=== PATIENT | male | born 1935 | race Caucasian/White ===

== ENCOUNTER 2017-07-04 12:30 | Day surgery (SDC) | payer MEDICARE, OTHER ==
[~2017-07-04 12:30] MED LIST: ACET325 PO; ACIDOPHILUS1 EAC1 PO; ALBU3IS; ALBU3IS INH; ALBU90OI INH; ALLO300 PO; ALPR.25; ALPR.25 PO; AMLO5 PO; ASPI81CH PO; ASPI81EC PO; BENZ100A PO; BISA10S PR; BUDE6HFA; BUDE6HFA INH; CALC1.25T PO; CARV6.25 PO; CEFD300 PO; CETI5 PO; CHOL10002 PO; CILO50 PO; CLOP75 PO; COLC.6 PO; COLCRYS0.6 MG PO; COUGHTAB200 MG PO; CYAN1000 PO; CYAN1000I IM; Calcium + Vita1 EACH PO; Carvedilol12.5 MG PO; DEXA1; DOCU100 PO; FISH1000 PO; FLUN25SP; FLUT.05NI; FURO20 PO; Furosemide20 MG PO; GABA400 PO; HYDACE10B; HYDACE10B PO; HYDMOR2 PO; IBUP800 PO; LAVAP17G PO; LEVFLO500 PO; LOPE2C PO; LOSA25 PO; LOSA50 PO; MECL25 PO; METCAR500 PO; METF500 PO; METO25 PO; METO25ER PO; MUCUS RELIEF200 MG PO; MULVITMIND PO; OMEP20ER; POTCHL10ER PO; PRED10 PO; PRED20 PO; PSEU120ER PO; PSYL5.85P PO; RANI150 PO; Rapaflo8 MG PO; SIMV40 PO; SODCHL.65S; Simvastatin10 MG PO; TIOT18 IH; TIOT18 INH; TRAM50 PO; VITAMIN D-32000 UNIT PO; Ventolin Soln3 ML INH; Ventolin/Prove6.7 GM INH; Zocor10 MG PO
[2017-09-30] MEDS ORDERED: Pulmicort0.5 MG/2 M INH (14:38)
[2017-09-30] MEDS ORDERED: CYAN1000I IM (14:39)
[2017-09-30] MEDS ORDERED: DOCU100 PO (14:39)
[2017-09-30] MEDS ORDERED: Ipratr-Albuterol3 ML INH (14:40)
[2017-09-30] MEDS ORDERED: GUAI600T33 PO (14:41)
[2017-09-30] MEDS ORDERED: ONDA4ODT MM (14:42)
[2017-09-30] MEDS ORDERED: MIRALAX17 GM PO (14:42)
[2017-09-30] MEDS ORDERED: Ranitidine HCl150 M1 PO (14:43)
[2017-09-30] MEDS ORDERED: Rapaflo8 MG PO (14:43)
== END 2017-07-04 14:34 | disposition home or self-care (01) ==
LOC: WOUND 12:30
DX: Z48.00 Encounter for change or removal of nonsurgical wound dressing (principal); E11.59 Type 2 diabetes mellitus with other circulatory complications; Z89.612 Acquired absence of left leg above knee
CPT/HCPCS: G0463

== ENCOUNTER 2017-08-19 14:24 | Inpatient (IN) | payer OTHER, MEDICARE ==
[~2017-08-19] VITALS: Ht 175.3 cm; Wt 78.0 kg
[2017-08-19] MEDS ORDERED: MELO7.5 PO (14:44)
[2017-08-19 15:09] LABS: BASOPHILS ABSOLUTE AUTO 0.03 K/mm3 (0.00-0.23); BASOPHILS PERCENT AUTO 1 % (0-2); EOSINOPHILS PERCENT AUTO 2 % (0-6); Hematocrit 43.1 % (37.0-53.0); Hemoglobin 14.2 g/dL (13.5-17.5); IMMATURE GRAN ABSOLUTE AUTO 0.03 K/mm3 (0.00-0.10); IMMATURE GRAN PERCENT AUTO 1 % (0-1); LYMPHOCYTES ABSOLUTE AUTO 1.34 K/mm3 (0.84-5.20); LYMPHOCYTES PERCENT AUTO 23 % (21-46); MONOCYTES ABSOLUTE AUTO 0.45 K/mm3 (0.16-1.47); MONOCYTES PERCENT AUTO 8 % (4-13); Mean Corpuscular HGB 32.3 pg (26.0-34.0); Mean Corpuscular HGB Conc 32.9 g/dL (31.5-36.5); Mean Corpuscular Volume 98 fL (80-100); NEUTROPHILS ABSOLUTE AUTO 3.89 K/mm3 (1.96-9.15); NEUTROPHILS PERCENT AUTO 67 % (41-73); RDW Coefficient Variation 13.1 % (11.7-14.2); RDW Standard Deviation 46.3 fL (35.1-46.3); White Blood Cell Count 5.84 K/mm3 (4.00-11.30)
[2017-08-19 15:11] LABS: Mean Platelet Volume 9.7 fL (9.1-12.4); Platelet Count 114 K/mm3 (150-400)
[2017-08-19 15:21] LABS: International Normalized Ratio 1.07; Prothrombin Time Results 11.1 Sec (9.7-11.5)
[2017-08-19 16:08] LABS: Albumin, Blood 3.7 g/dL (3.4-5.0); Albumin/Globulin Ratio 1.1 (0.8-1.8); Bilirubin, Total 1.9 mg/dL (0.1-1.0); Bun/Creatinine Ratio 13.3 (12.0-20.0); Creatinine, Blood 1.28 mg/dL (0.60-1.20); Globulin, Blood 3.4 g/dL (2.2-4.0); Potassium, Blood 3.9 mmol/L (3.5-5.5); Total Protein, Blood 7.1 g/dL (6.4-8.2)
[2017-08-19 16:28] LABS: Source, Urine Catheter
[2017-08-19 16:32] LABS: Bilirubin, Urine Neg (Neg); Blood, Urine Neg (Neg); Glucose Qualitative, Urine Neg (Neg); Ketones, Urine Neg (Neg); Leukocyte Esterase, Urine Neg (Neg); Nitrite, Urine Neg (Neg); Protein, Urine Neg (Neg); Specific Gravity, Urine 1.015 (1.003-1.022); Urobilinogen, Urine NORM (Normal)
[2017-08-19 16:45] LABS: Appearance, Urine Clear (Clear); Color, Urine Yellow (P-Yellow)
[2017-08-20 05:42] LABS: BASOPHILS ABSOLUTE AUTO 0.03 K/mm3 (0.00-0.23); BASOPHILS PERCENT AUTO 1 % (0-2); EOSINOPHILS ABSOLUTE AUTO 0.21 K/mm3 (0.00-0.68); EOSINOPHILS PERCENT AUTO 3 % (0-6); Hematocrit 40.8 % (37.0-53.0); Hemoglobin 13.2 g/dL (13.5-17.5); IMMATURE GRAN ABSOLUTE AUTO 0.02 K/mm3 (0.00-0.10); IMMATURE GRAN PERCENT AUTO 0 % (0-1); LYMPHOCYTES ABSOLUTE AUTO 1.19 K/mm3 (0.84-5.20); LYMPHOCYTES PERCENT AUTO 19 % (21-46); MONOCYTES ABSOLUTE AUTO 0.55 K/mm3 (0.16-1.47); MONOCYTES PERCENT AUTO 9 % (4-13); Mean Corpuscular HGB Conc 32.4 g/dL (31.5-36.5); Mean Corpuscular Volume 99 fL (80-100); Mean Platelet Volume 9.8 fL (9.1-12.4); NEUTROPHILS ABSOLUTE AUTO 4.25 K/mm3 (1.96-9.15); NEUTROPHILS PERCENT AUTO 68 % (41-73); Platelet Count 97 K/mm3 (150-400); RDW Coefficient Variation 13.1 % (11.7-14.2); RDW Standard Deviation 47.5 fL (35.1-46.3); Red Blood Cell Count 4.12 M/mm3 (4.30-5.90); White Blood Cell Count 6.25 K/mm3 (4.00-11.30)
[2017-08-20 06:01] LABS: Alanine Aminotransfer (ALT/SGP 23 U/L (12-78); Albumin, Blood 3.3 g/dL (3.4-5.0); Albumin/Globulin Ratio 1.1 (0.8-1.8); Alk Phos 85 U/L (50-136); Anion Gap 5 mmol/L (6-16); Aspartate Aminotrans (AST/SGOT 22 U/L (12-37); Bilirubin, Total 2.7 mg/dL (0.1-1.0); Blood Urea Nitrogen 17 mg/dL (8-24); Bun/Creatinine Ratio 14.2 (12.0-20.0); CO2, Blood 30 mmol/L (21-32); Calcium, Blood 8.4 mg/dL (8.5-10.1); Chloride, Blood 106 mmol/L (98-108); Globulin, Blood 3.1 g/dL (2.2-4.0); Glomerular Filtration Rate >60 (60-); Glucose, Blood 135 mg/dL (70-99); Potassium, Blood 4.3 mmol/L (3.5-5.5); Sodium, Blood 141 mmol/L (136-145); Total Protein, Blood 6.4 g/dL (6.4-8.2)
[2017-08-21 04:18] LABS: BASOPHILS ABSOLUTE AUTO 0.02 K/mm3 (0.00-0.23); BASOPHILS PERCENT AUTO 0 % (0-2); EOSINOPHILS ABSOLUTE AUTO 0.08 K/mm3 (0.00-0.68); EOSINOPHILS PERCENT AUTO 1 % (0-6); Hematocrit 37.6 % (37.0-53.0); IMMATURE GRAN ABSOLUTE AUTO 0.03 K/mm3 (0.00-0.10); IMMATURE GRAN PERCENT AUTO 0 % (0-1); LYMPHOCYTES ABSOLUTE AUTO 0.84 K/mm3 (0.84-5.20); LYMPHOCYTES PERCENT AUTO 12 % (21-46); MONOCYTES ABSOLUTE AUTO 0.48 K/mm3 (0.16-1.47); MONOCYTES PERCENT AUTO 7 % (4-13); Mean Corpuscular HGB 32.2 pg (26.0-34.0); Mean Corpuscular HGB Conc 31.9 g/dL (31.5-36.5); Mean Corpuscular Volume 101 fL (80-100); Mean Platelet Volume 10.3 fL (9.1-12.4); NEUTROPHILS ABSOLUTE AUTO 5.54 K/mm3 (1.96-9.15); NEUTROPHILS PERCENT AUTO 79 % (41-73); Platelet Count 78 K/mm3 (150-400); RDW Standard Deviation 48.3 fL (35.1-46.3); Red Blood Cell Count 3.73 M/mm3 (4.30-5.90); White Blood Cell Count 6.99 K/mm3 (4.00-11.30)
[2017-08-22 03:35] LABS: BASOPHILS ABSOLUTE AUTO 0.01 K/mm3 (0.00-0.23); BASOPHILS PERCENT AUTO 0 % (0-2); EOSINOPHILS ABSOLUTE AUTO 0.18 K/mm3 (0.00-0.68); EOSINOPHILS PERCENT AUTO 3 % (0-6); Hematocrit 32.7 % (37.0-53.0); Hemoglobin 10.5 g/dL (13.5-17.5); IMMATURE GRAN ABSOLUTE AUTO 0.03 K/mm3 (0.00-0.10); IMMATURE GRAN PERCENT AUTO 1 % (0-1); LYMPHOCYTES ABSOLUTE AUTO 0.72 K/mm3 (0.84-5.20); LYMPHOCYTES PERCENT AUTO 12 % (21-46); MONOCYTES ABSOLUTE AUTO 0.54 K/mm3 (0.16-1.47); MONOCYTES PERCENT AUTO 9 % (4-13); Mean Corpuscular HGB Conc 32.1 g/dL (31.5-36.5); Mean Corpuscular Volume 100 fL (80-100); Mean Platelet Volume 9.9 fL (9.1-12.4); NEUTROPHILS PERCENT AUTO 75 % (41-73); Platelet Count 78 K/mm3 (150-400); RDW Standard Deviation 46.8 fL (35.1-46.3); Red Blood Cell Count 3.28 M/mm3 (4.30-5.90); White Blood Cell Count 5.88 K/mm3 (4.00-11.30)
[2017-08-24 04:42] LABS: Hematocrit 31.2 % (37.0-53.0); Hemoglobin 10.2 g/dL (13.5-17.5); Mean Corpuscular HGB 32.1 pg (26.0-34.0); Mean Corpuscular HGB Conc 32.7 g/dL (31.5-36.5); Mean Corpuscular Volume 98 fL (80-100); Mean Platelet Volume 10.4 fL (9.1-12.4); Platelet Count 99 K/mm3 (150-400); RDW Coefficient Variation 12.8 % (11.7-14.2); RDW Standard Deviation 46.1 fL (35.1-46.3); Red Blood Cell Count 3.18 M/mm3 (4.30-5.90); White Blood Cell Count 4.86 K/mm3 (4.00-11.30)
[2017-08-24 04:59] LABS: Anion Gap 7 mmol/L (6-16); Blood Urea Nitrogen 14 mg/dL (8-24); Bun/Creatinine Ratio 15.1 (12.0-20.0); CO2, Blood 31 mmol/L (21-32); Chloride, Blood 102 mmol/L (98-108); Creatinine, Blood 0.93 mg/dL (0.60-1.20); Glomerular Filtration Rate >60 (60-); Glucose, Blood 93 mg/dL (70-99); Potassium, Blood 3.5 mmol/L (3.5-5.5); Sodium, Blood 140 mmol/L (136-145)
[2017-09-30] MEDS ORDERED: Pulmicort0.5 MG/2 M INH (14:38)
[2017-09-30] MEDS ORDERED: CYAN1000I IM (14:39)
[2017-09-30] MEDS ORDERED: DOCU100 PO (14:39)
[2017-09-30] MEDS ORDERED: Ipratr-Albuterol3 ML INH (14:40)
[2017-09-30] MEDS ORDERED: GUAI600T33 PO (14:41)
[2017-09-30] MEDS ORDERED: ONDA4ODT MM (14:42)
[2017-09-30] MEDS ORDERED: MIRALAX17 GM PO (14:42)
[2017-09-30] MEDS ORDERED: Ranitidine HCl150 M1 PO (14:43)
[2017-09-30] MEDS ORDERED: Rapaflo8 MG PO (14:43)
== END 2017-08-24 14:50 | DRG 482 ==
LOC: ER 14:24 → SURS 16:08
PROVIDERS: Family Medicine; Internal Medicine; Orthopaedic Surgery; Physician Assistant
PROC: 0QH736Z Insertion of Intramedullary Internal Fixation Device into Left Upper Femur, Percutaneous Approach (ICD-10-PCS; principal; 2017-08-20 14:00)
DX: S72.142A Displaced intertrochanteric fracture of left femur, initial encounter for closed fracture (principal); D69.6 Thrombocytopenia, unspecified; E11.51 Type 2 diabetes mellitus with diabetic peripheral angiopathy without gangrene; W01.0XXA Fall on same level from slipping, tripping and stumbling without subsequent striking against object, initial encounter; M25.522 Pain in left elbow; I25.10 Atherosclerotic heart disease of native coronary artery without angina pectoris; M10.9 Gout, unspecified; K21.9 Gastro-esophageal reflux disease without esophagitis; G47.33 Obstructive sleep apnea (adult) (pediatric); M19.90 Unspecified osteoarthritis, unspecified site; G89.29 Other chronic pain; M54.5 Low back pain; J44.9 Chronic obstructive pulmonary disease, unspecified; N40.0 Benign prostatic hyperplasia without lower urinary tract symptoms; E78.5 Hyperlipidemia, unspecified; I10 Essential (primary) hypertension; Y92.538 Other ambulatory health services establishments as the place of occurrence of the external cause; Z79.1 Long term (current) use of non-steroidal anti-inflammatories (NSAID); Z79.82 Long term (current) use of aspirin; Z79.891 Long term (current) use of opiate analgesic; Z95.820 Peripheral vascular angioplasty status with implants and grafts; Z87.891 Personal history of nicotine dependence; Z86.718 Personal history of other venous thrombosis and embolism; Z88.5 Allergy status to narcotic agent; Z88.8 Allergy status to other drugs, medicaments and biological substances; Z95.1 Presence of aortocoronary bypass graft; Z95.5 Presence of coronary angioplasty implant and graft; Z95.0 Presence of cardiac pacemaker; Z89.612 Acquired absence of left leg above knee; Z79.51 Long term (current) use of inhaled steroids; Z79.899 Other long term (current) drug therapy; Z79.02 Long term (current) use of antithrombotics/antiplatelets
CPT/HCPCS: 36415; 51702; 71045; 73070; 80048; 80053; 81003; 82947; 85025; 85027; 85610; 86850; 86900; 86901; 93005; 93010; 94640; 94760; 94762; 96374; 96375; 97110; 97162; 97165; 97530; 97535; 99285; C1713; C1769; C9113; G8978; G8979; G8987; G8988; J0360; J0690; J1170; J2405; J2765; J3010; J7120

== ENCOUNTER 2017-10-01 07:36 | Day surgery (SDC) | payer MEDICARE, OTHER ==
[~2017-10-01] VITALS: Ht 175.3 cm; Wt 77.2 kg
[~2017-10-01 07:36] MED LIST changes: +GUAI600T33 PO; +Ipratr-Albuterol3 ML INH; +MELO7.5 PO; +MIRALAX17 GM PO; +ONDA4ODT MM; +Pulmicort0.5 MG/2 M INH; +Ranitidine HCl150 M1 PO
[2017-10-01] MEDS ORDERED: GABA400 PO (09:14)
== END 2017-10-01 17:00 | disposition home or self-care (01) ==
LOC: MHTC 07:36
PROC: B41DYZZ Fluoroscopy of Aorta and Bilateral Lower Extremity Arteries using Other Contrast (ICD-10-PCS; principal; 2017-10-01)
DX: E11.51 Type 2 diabetes mellitus with diabetic peripheral angiopathy without gangrene (principal); I70.202 Unspecified atherosclerosis of native arteries of extremities, left leg; I70.92 Chronic total occlusion of artery of the extremities; G47.30 Sleep apnea, unspecified; Z87.891 Personal history of nicotine dependence; I25.10 Atherosclerotic heart disease of native coronary artery without angina pectoris; Z95.0 Presence of cardiac pacemaker; E78.5 Hyperlipidemia, unspecified; I10 Essential (primary) hypertension; J44.9 Chronic obstructive pulmonary disease, unspecified; Z89.612 Acquired absence of left leg above knee; Z95.1 Presence of aortocoronary bypass graft; Z87.81 Personal history of (healed) traumatic fracture; Z79.4 Long term (current) use of insulin
CPT/HCPCS: 36140; 75625; 75710; 76937; 85347; 99152; 99153; C1769; C1887; C1894; J1644; J2250; J2720; J3010; J7030; J7040; Q9967

== ENCOUNTER 2017-10-30 13:15 | Day surgery (SDC) | payer MEDICARE, OTHER ==
[~2017-10-30] VITALS: Ht 175.3 cm; Wt 74.8 kg
== END 2017-10-30 14:25 | disposition home or self-care (01) ==
LOC: ORSCSDS 13:15
PROVIDERS: Anesthesiology
PROC: 3E0R33Z Introduction of Anti-inflammatory into Spinal Canal, Percutaneous Approach (ICD-10-PCS; principal; 2017-10-30 14:30)
DX: M54.16 Radiculopathy, lumbar region (principal); M48.061 Spinal stenosis, lumbar region without neurogenic claudication; I73.9 Peripheral vascular disease, unspecified; E78.00 Pure hypercholesterolemia, unspecified; J45.909 Unspecified asthma, uncomplicated; Z87.891 Personal history of nicotine dependence; I25.10 Atherosclerotic heart disease of native coronary artery without angina pectoris; Z95.0 Presence of cardiac pacemaker; Z79.01 Long term (current) use of anticoagulants; I10 Essential (primary) hypertension; Z79.82 Long term (current) use of aspirin; Z79.899 Other long term (current) drug therapy
CPT/HCPCS: J1040

== ENCOUNTER → 2017-11-18 | Outpatient (CLI) | payer MEDICARE, OTHER | END | disposition home or self-care (01) | LOC: LAB EV 12:40 → LAB SHORT 12:40 | DX: E11.51 Type 2 diabetes mellitus with diabetic peripheral angiopathy without gangrene (principal); R53.83 Other fatigue | CPT/HCPCS: 82043 ==

== ENCOUNTER 2018-03-27 10:48 | Day surgery (SDC) | payer MEDICARE, OTHER ==
[~2018-03-27] VITALS: Ht 175.3 cm; Wt 74.8 kg
== END 2018-03-27 12:50 | disposition home or self-care (01) ==
LOC: ORSCSDS 10:48
PROVIDERS: Anesthesiology
PROC: 3E0R33Z Introduction of Anti-inflammatory into Spinal Canal, Percutaneous Approach (ICD-10-PCS; principal; 2018-03-27 12:30)
DX: M54.16 Radiculopathy, lumbar region (principal); M48.061 Spinal stenosis, lumbar region without neurogenic claudication; I25.10 Atherosclerotic heart disease of native coronary artery without angina pectoris; I73.9 Peripheral vascular disease, unspecified; I10 Essential (primary) hypertension; E78.00 Pure hypercholesterolemia, unspecified; J45.909 Unspecified asthma, uncomplicated; Z95.0 Presence of cardiac pacemaker; K21.9 Gastro-esophageal reflux disease without esophagitis; G47.33 Obstructive sleep apnea (adult) (pediatric); E11.9 Type 2 diabetes mellitus without complications; Z87.891 Personal history of nicotine dependence; Z79.82 Long term (current) use of aspirin; Z79.84 Long term (current) use of oral hypoglycemic drugs; Z79.899 Other long term (current) drug therapy
CPT/HCPCS: J1040; J2001

== ENCOUNTER 2018-09-04 11:48 | Observation (INO) | payer OTHER, MEDICARE ==
[~2018-09-04] VITALS: Ht 175.3 cm; Wt 72.6 kg
[2018-09-04] MEDS ORDERED: AMLO10 PO (13:45)
[2018-09-04] MEDS ORDERED: ALBU90OI INH (13:45)
[2018-09-04] MEDS ORDERED: FINA5 PO (13:46)
[2018-09-04] MEDS ORDERED: CETI5 PO (13:46)
[2018-09-04] MEDS ORDERED: ELIQUIS5 M1 PO (13:46)
[2018-09-04] MEDS ORDERED: Flonase 0.05% N16 GM (13:47)
[2018-09-04] MEDS ORDERED: METCAR500 PO (13:48)
[2018-09-04] MEDS ORDERED: GLIP5 PO (13:48)
[2018-09-04] MEDS ORDERED: HYDPAM50 PO (13:48)
[2018-09-04] MEDS ORDERED: NITR.8TP (13:49)
[2018-09-04] MEDS ORDERED: ASMANEX220 MC1 IH (13:49)
[2018-09-04] MEDS ORDERED: Zantac150 MG PO (13:50)
[2018-09-04] MEDS ORDERED: SENN187 PO (13:50)
[2018-09-04] MEDS ORDERED: TAMS.4ER PO (13:51)
[2018-09-04] MEDS ORDERED: SIMV10 PO (13:51)
[2018-09-04 14:19] LABS: BASOPHILS PERCENT AUTO 0 % (0-2); EOSINOPHILS PERCENT AUTO 0 % (0-6); Hematocrit 30.7 % (37.0-53.0); IMMATURE GRAN ABSOLUTE AUTO 0.07 K/mm3 (0.00-0.10); IMMATURE GRAN PERCENT AUTO 1 % (0-1); LYMPHOCYTES PERCENT AUTO 6 % (21-46); MONOCYTES ABSOLUTE AUTO 0.26 K/mm3 (0.16-1.47); MONOCYTES PERCENT AUTO 4 % (4-13); Mean Corpuscular HGB 32.6 pg (26.0-34.0); Mean Corpuscular HGB Conc 32.6 g/dL (31.5-36.5); Mean Corpuscular Volume 100 fL (80-100); Mean Platelet Volume 9.2 fL (9.1-12.4); NEUTROPHILS ABSOLUTE AUTO 5.51 K/mm3 (1.96-9.15); NEUTROPHILS PERCENT AUTO 88 % (41-73); NRBC ABSOLUTE 0.04 K/mm3 (0.00-0.02); NRBC Auto 0.6 /100 WBC (0.0-0.2); Platelet Count 94 K/mm3 (150-400); RDW Coefficient Variation 14.9 % (11.7-14.2); RDW Standard Deviation 53.1 fL (35.1-46.3); Red Blood Cell Count 3.07 M/mm3 (4.30-5.90); White Blood Cell Count 6.24 K/mm3 (4.00-11.30)
[2018-09-04 14:46] LABS: International Normalized Ratio 1.04
[2018-09-04 14:50] LABS: Alanine Aminotransfer (ALT/SGP 64 U/L (12-78); Albumin, Blood 2.3 g/dL (3.4-5.0); Albumin/Globulin Ratio 0.8 (0.8-1.8); Alk Phos 64 U/L (50-136); Anion Gap 4 mmol/L (6-16); Aspartate Aminotrans (AST/SGOT 20 U/L (12-37); Bilirubin, Total 1.2 mg/dL (0.1-1.0); Blood Urea Nitrogen 27 mg/dL (8-24); Bun/Creatinine Ratio 32.8 (12.0-20.0); CO2, Blood 31 mmol/L (21-32); Calcium, Blood 7.7 mg/dL (8.5-10.1); Chloride, Blood 101 mmol/L (98-108); Creatinine, Blood 0.82 mg/dL (0.60-1.20); Globulin, Blood 2.8 g/dL (2.2-4.0); Glomerular Filtration Rate >60 (60-); Glucose, Blood 220 mg/dL (70-99); Potassium, Blood 4.2 mmol/L (3.5-5.5); Sodium, Blood 136 mmol/L (136-145); Total Protein, Blood 5.1 g/dL (6.4-8.2)
--- NOTE | 2018-09-04 17:30 | NUR ---
PT ARRIVED FROM VIA [facility], WAS ABLE TO STAND WITH ASSISTANCE AND DO A PIVOT TRANSFER FROM [facility] TO BED. ACCOMPANIED BY SPOUSE. BOTH ORIENTED TO ROOM, PHONES AND CALL SYSTEM. PT IS A/O, PLEASANT AND COOPERATIVE, VERY [place]. CALL OCONNOR IN REACH, WILL CONTINUE TO MONITOR.
--- NOTE | 2018-09-05 05:28 | NUR ---
SHIFT SUMMARY PT SLEPT WELL DURING THE NIGHT, USES URINAL AT BEDSIDE WITH SBA. VOIDS IN LARGE AMOUNTS. IVF'S INFUSING PER PUMP WIHTOUT DIFFICULTY. SCD ON RLE. CPAP ON DURING THE NIGHT. PT INFORMED THIS NURSE THIS AM THAT HE WILL BE HAVING AN UPPER ENDOSCOPY DONE THIS AM SOMETIME AFTER 8 AM, STATES TOLD HIM LAST NIGHT. PT NPO WITH ONLY ICE CHIPS DURING THE NIGHT. NPO AT THIS TIME. WILL CONTINUE TO MONITOR.
[2018-09-05 05:34] LABS: Hemoglobin 10.1 g/dL (13.5-17.5); Mean Corpuscular HGB 31.7 pg (26.0-34.0); Mean Corpuscular HGB Conc 31.6 g/dL (31.5-36.5); Mean Corpuscular Volume 100 fL (80-100); Mean Platelet Volume 8.8 fL (9.1-12.4); NRBC ABSOLUTE 0.04 K/mm3 (0.00-0.02); NRBC Auto 0.7 /100 WBC (0.0-0.2); Platelet Count 89 K/mm3 (150-400); RDW Coefficient Variation 15.1 % (11.7-14.2); RDW Standard Deviation 54.9 fL (35.1-46.3); Red Blood Cell Count 3.19 M/mm3 (4.30-5.90); White Blood Cell Count 5.91 K/mm3 (4.00-11.30)
--- NOTE | 2018-09-05 10:57 | NUR ---
History, Chart, Medications and Allergies reviewed before start of procedure. Patient confirms NPO status and agrees with scheduled surgery EXCEPT FOR 2 SMALL SIPS OF WATER AT 0945, DR EMERSON HICKS AT ADMIT TO [facility].
--- NOTE | 2018-09-05 11:03 | NUR ---
DYLANB ADMINISTERED IN [facility] AT [address] NORMAN.
--- NOTE | 2018-09-05 11:06 | NUR ---
DR DEMPSEY DELAYED IN HIS ARRIVAL 30 MINUTES, CASE IS DELAYED AND SURGERIES WILL PROCEED THEN WE WILL FOLLOW UP THIS AFTERNOON.
--- NOTE | 2018-09-05 12:44 | NUR ---
BLOOD SUGAR @ 1240 59. RN PLACED CALL TO DR. SHORT, NO ANSWER. WAITING FOR CALL BACK.
--- NOTE | 2018-09-05 15:30 | NUR ---
09/05/[address] HERE TO PROVIDE ANESTHESIA CARE, PLEASE SEE ANESTHESIA RECORD FOR DETAILS. History, Chart, Medications and Allergies reviewed before start of procedure. PATIENT CONFIRMS NPO STATUS AND AGREES WITH SCHEDULED PROCEDURE. MONITOR INTACT WITH CONTINUOUS PULSE OXIMETRY AND INTERMITTENT BP. O2 VIA N/C INTACT THROUGHOUT SEDATION/PROCEDURE, VIA POM MASK AT 10 L. BLOOD SUGAR IMPROVEMENT REPORTED TO DR SANTOS UPON HIS ARRIVAL. 155 AT ADMIT TO [facility] FOR PROCEDURE. DUONEB PER DR SANTOS PREPROCEDURALLY.
--- NOTE | 2018-09-05 16:33 | NUR ---
PATIENT BACK FROM DAY SURGERY @ 1620. VSS. PULSE 60, BP 153/50, 97%, TEMP 98.9. RESP 18. POST OP VITALS STARTED. PATIENT A&O, ANSWERING QUESTIONS APPROPRIATELY. APPEARS TO STILL BE A LITTLE SLEEPY. RN WILL CONTINUE TO MONITOR.
--- NOTE | 2018-09-05 17:48 | NUR ---
SHIFT SUMMARY PATIENT A&O X4, 1PA TO USE URINAL. DENIES ANY PAIN THIS SHIFT. C/O SOB W/EXERTION. 02 @ 2L NC, RESP E/U AT REST. NPO THIS SHIFT FOR PROCEDURE. PATIENT RETURNED FROM UPPER ENDOSCOPY @ 1620. VSS. PATIENT UP AND AWAKE, IS AT HIS BEDSIDE. RN MEDICATED PER E SEP. PATIENT ACHS, CBG [address] DEMPSEY NOTIFIED. MEDICATED PER Sep. CBG ON RETURN FROM DAY SURGERY 155. NO OTHER ACUTE CHANGES THIS SHIFT. RN WILL CONTINUE TO MONITOR.
--- NOTE | 2018-09-06 04:39 | NUR ---
SHIFT SUMMARY PT HAD LARGE CONTINENT BM. SLEPT WELL DURING THE NIGHT WITH CPAP ON. PT OFFERS NO C/O'S. NO ACUTE CHANGES NOTED DURING THE NIGHT, WILL CONTINUE TO MONITOR.
[2018-09-06 05:31] LABS: Hemoglobin 10.4 g/dL (13.5-17.5); Mean Corpuscular HGB 31.2 pg (26.0-34.0); Mean Corpuscular HGB Conc 31.5 g/dL (31.5-36.5); Mean Corpuscular Volume 99 fL (80-100); Mean Platelet Volume 9.2 fL (9.1-12.4); Platelet Count 94 K/mm3 (150-400); RDW Coefficient Variation 15.6 % (11.7-14.2); RDW Standard Deviation 55.5 fL (35.1-46.3); Red Blood Cell Count 3.33 M/mm3 (4.30-5.90); White Blood Cell Count 6.35 K/mm3 (4.00-11.30)
[2018-09-06 05:51] LABS: Anion Gap 7 mmol/L (6-16); Blood Urea Nitrogen 17 mg/dL (8-24); Bun/Creatinine Ratio 21.4 (12.0-20.0); CO2, Blood 26 mmol/L (21-32); Calcium, Blood 7.7 mg/dL (8.5-10.1); Chloride, Blood 106 mmol/L (98-108); Glomerular Filtration Rate >60 (60-); Glucose, Blood 169 mg/dL (70-99); Sodium, Blood 139 mmol/L (136-145)
--- NOTE | 2018-09-06 15:23 | NUR ---
DISCHARGE ORDERS PLACED BY DR. SHORT. PATIENT IS UNABLE TO DISCHARGE TO HOME DUE TO NO POWER. [facility] TO ADMIT PATIENT BACK TO THEIR FACILITY BECAUSE THEY ARE FULL. PATIENT UNABLE TO D/C TO HOTEL WHERE IS STAYING BECAUSE HE DOES NOT HAVE A WAY TO GET HIS OXYGEN FROM HOME AND [facility] TO GET HIM OXYGEN TODAY. DR. SHORT AWARE. MORNING NANNY KELSEY NOTIFIED.
--- NOTE | 2018-09-06 17:02 | NUR ---
SHIFT SUMMARY PATIENT A&O X4. DENIES PAIN OR NAUSEA THIS SHIFT. SOB W/ EXERTION. O2 @ 2L NC. CONT PULSE OX ON, SATS >90%. RN MEDICATED PER E IVONE THIS SHIFT. DISCHARGE ORDERS PLACED BY DR. SHORT. PATIENT UNABLE TO D/C DUE TO LACK OF POWER AT HOME AND [facility] UNABLE TO SUPPLY OXYGEN FOR HIM TO BE DISCHARGED TO A HOTEL WITH HIS TODAY. AT THE BEDSIDE THROUGHOUT THE SHIFT. NO OTHER ACUTE CHANGES THIS SHIFT. BED IS IN LOWEST POSITION, CALL LIGHT WITHIN REACH. RN WILL CONTINUE TO MONITOR.
--- NOTE | 2018-09-07 04:37 | NUR ---
SHIFT SUMMARY PT SLEPT WELL DURING THE NIGHT. NO ACUTE CHANGES NOTED. CPAP WORN DURING THE NIGHT. WILL CONTINUE TO MONITOR.
[2018-09-07 05:43] LABS: Hematocrit 35.6 % (37.0-53.0); Hemoglobin 11.4 g/dL (13.5-17.5); Mean Corpuscular HGB 31.6 pg (26.0-34.0); Mean Corpuscular Volume 99 fL (80-100); Mean Platelet Volume 8.6 fL (9.1-12.4); Platelet Count 95 K/mm3 (150-400); RDW Coefficient Variation 15.6 % (11.7-14.2); RDW Standard Deviation 54.9 fL (35.1-46.3); Red Blood Cell Count 3.61 M/mm3 (4.30-5.90)
--- NOTE | 2018-09-07 20:03 | NUR ---
SHIFT SUMMARY PT A&OX4. CALM AND COOPERATIVE WITH CARE. PT RESTING IN BED DURING SHIFT, SBA FOR UNIRAL AT BEDSIDE AND TO BSC. SOB WITH EXERTION, >90% ON 2L O2 VIA NC. PT DENIES PAIN AND N/V DURING SHIFT. ATTEMPTS TO DISCHARGE, DISCHARGE PLANNING NEEDING TO SEE PATIENT. POWER IS OUT AT HOME, NEEDING SAFE D/C PLAN WITH O2. VSS. NO OTHER ACUTE CHANGES NOTED DURING SHIFT. REPORT GIVEN TO ONCOMING RN.
--- NOTE | 2018-09-08 07:34 | NUR ---
09/08/18 0600 AWAKE THIS AM. STATES HE SLEPT WELL AFTER COUGH SUPPRESSANT GIVEN, VITALS STABLE. NO STOOLS THIS SHIFT. DENIES ANY DISCOMFORT.
--- NOTE | 2018-09-08 15:30 | NUR ---
REPORT CALLED TO [facility] TO NURSE. TRANSPORT HERE AT 1500 TO PICK PT UP. AT BEDSIDE AND GOT PTS BELONGINGS TOGETHER. 1 PERSON ASSIST WITH STAND PIVOT TRANSFER DUE TO PT NOT HAVING HIS PROSTHETIC. O2 SUPPLIED FOR TRANSFER. TO [facility] VIA W/C.
[2018-09-08] MEDS ORDERED: BAYER CHEWABLE81 MG PO (17:02)
[2018-09-08] MEDS ORDERED: OMEPRAZOLE MAGN20 MG PO (17:03)
[2018-09-08] MEDS ORDERED: TORSE20 PO (17:04)
[2018-09-08] MEDS ORDERED: Carvedilol6.25 MG PO (17:04)
[2018-09-08] MEDS ORDERED: TUSSIN DM COUG118 ML PO (17:07)
== END 2018-09-08 15:00 ==
LOC: ER 11:48 → MEDS 11:49 → ENPENDDIS 09-06 11:58 → EDPENDDIS 09-06 11:58 → MEDS 09-08 15:00
PROVIDERS: Emergency Medicine; Internal Medicine Gastroenterology; ADMIT Internal Medicine
PROC: 0DB78ZX Excision of Stomach, Pylorus, Via Natural or Artificial Opening Endoscopic, Diagnostic (ICD-10-PCS; principal; 2018-09-05 11:00)
DX: K92.1 Melena (principal); I11.0 Hypertensive heart disease with heart failure; I50.32 Chronic diastolic (congestive) heart failure; I25.10 Atherosclerotic heart disease of native coronary artery without angina pectoris; J44.9 Chronic obstructive pulmonary disease, unspecified; I82.4Z1 Acute embolism and thrombosis of unspecified deep veins of right distal lower extremity; I73.9 Peripheral vascular disease, unspecified; G47.33 Obstructive sleep apnea (adult) (pediatric); K56.600 Partial intestinal obstruction, unspecified as to cause; K21.9 Gastro-esophageal reflux disease without esophagitis; E11.9 Type 2 diabetes mellitus without complications; E78.5 Hyperlipidemia, unspecified; M19.90 Unspecified osteoarthritis, unspecified site; Z99.89 Dependence on other enabling machines and devices; Z88.5 Allergy status to narcotic agent; Z88.8 Allergy status to other drugs, medicaments and biological substances; Z79.899 Other long term (current) drug therapy; Z79.02 Long term (current) use of antithrombotics/antiplatelets; Z79.82 Long term (current) use of aspirin; Z87.891 Personal history of nicotine dependence
CPT/HCPCS: 36415; 80048; 80053; 82272; 82947; 85025; 85027; 85610; 85730; 86850; 86900; 86901; 87081; 94640; 94660; 94667; 94760; 94762; 96361; 96374; 96376; 97162; 97166; 97530; 99285-25; C9113; G0378; J7030; J7120

== ENCOUNTER 2018-09-12 12:52 | Inpatient (IN) | payer MEDICARE, OTHER ==
[~2018-09-12] VITALS: Ht 175.3 cm; Wt 72.8 kg
[~2018-09-12 12:52] MED LIST changes: +ALBU2.5V5 NEB; +AMLO10 PO; +ASMANEX220 MC1 INH; +BAYER CHEWABLE81 MG PO; +Carvedilol6.25 MG PO; +ELIQUIS5 M1 PO; +FINA5 PO; +Flonase 0.05% N16 GM; +GLIP5 PO; +HYDPAM50 PO; +NITR.8TP; +OMEPRAZOLE MAGN20 MG PO; +SENN187 PO; +SIMV10 PO; +TAMS.4ER PO; +TORSE20 PO; +TUSSIN DM COUG118 ML PO; +Zantac150 MG PO
[2018-09-12 13:30] LABS: BASOPHILS ABSOLUTE AUTO 0.01 K/mm3 (0.00-0.23); BASOPHILS PERCENT AUTO 0 % (0-2); EOSINOPHILS PERCENT AUTO 0 % (0-6); Hematocrit 31.8 % (37.0-53.0); IMMATURE GRAN ABSOLUTE AUTO 0.03 K/mm3 (0.00-0.10); IMMATURE GRAN PERCENT AUTO 1 % (0-1); LYMPHOCYTES ABSOLUTE AUTO 0.55 K/mm3 (0.84-5.20); LYMPHOCYTES PERCENT AUTO 13 % (21-46); MONOCYTES ABSOLUTE AUTO 0.27 K/mm3 (0.16-1.47); MONOCYTES PERCENT AUTO 6 % (4-13); Mean Corpuscular HGB 32.3 pg (26.0-34.0); Mean Corpuscular HGB Conc 31.4 g/dL (31.5-36.5); NEUTROPHILS ABSOLUTE AUTO 3.33 K/mm3 (1.96-9.15); NEUTROPHILS PERCENT AUTO 80 % (41-73); Platelet Count 99 K/mm3 (150-400); RDW Coefficient Variation 15.5 % (11.7-14.2); RDW Standard Deviation 58.4 fL (35.1-46.3); White Blood Cell Count 4.19 K/mm3 (4.00-11.30)
[2018-09-12] MEDS ORDERED: POTA20LUD PO (13:37)
[2018-09-12] MEDS ORDERED: CHOL10002 PO (13:39)
[2018-09-12] MEDS ORDERED: HYDMOR2 PO (13:43)
[2018-09-12 13:50] LABS: Alanine Aminotransfer (ALT/SGP 33 U/L (12-78); Albumin, Blood 2.4 g/dL (3.4-5.0); Albumin/Globulin Ratio 0.7 (0.8-1.8); Alk Phos 77 U/L (50-136); Anion Gap 7 mmol/L (6-16); Aspartate Aminotrans (AST/SGOT 22 U/L (12-37); Bilirubin, Total 1.2 mg/dL (0.1-1.0); Blood Urea Nitrogen 12 mg/dL (8-24); Bun/Creatinine Ratio 11.3 (12.0-20.0); CO2, Blood 33 mmol/L (21-32); Calcium, Blood 7.8 mg/dL (8.5-10.1); Chloride, Blood 95 mmol/L (98-108); Creatinine, Blood 1.06 mg/dL (0.60-1.20); Globulin, Blood 3.5 g/dL (2.2-4.0); Glomerular Filtration Rate >60 (60-); Glucose, Blood 171 mg/dL (70-99); Potassium, Blood 3.3 mmol/L (3.5-5.5); Sodium, Blood 135 mmol/L (136-145); Total Protein, Blood 5.9 g/dL (6.4-8.2); Troponin I 0.062 ng/mL (0.000-0.040)
[2018-09-12 13:55] LABS: Mean Corpuscular Volume 103 fL (80-100)
[2018-09-12 14:16] LABS: International Normalized Ratio 1.17; Prothrombin Time Results 12.2 Sec (9.7-11.5)
[2018-09-12 16:08] LABS: Influenza A Positive (NEGATIVE); Influenza B Negative (NEGATIVE)
--- NOTE | 2018-09-13 00:01 | NUR ---
PATIENT IS A NEW ADMIT FROM THE ED. FOUR PERSON TRANSFER FROM [facility] TO BED. AXOX 3 WITH LAKA AND ONE ASSIST WITH BEDSIDE URINAL/BSC. ON 2L O2 NC. BLACKFEET AND ONLY ONE HEARING AID IN LEFT EAR AND RIGHT AID AT HOME. PATIENT ORIENTED TO ROOM AND CALL LIGHT SYSTEM. REPORTS TROUBLE URINATING SINCE IN ED. HX ENLARGED PROSTATE. URINAL AT BEDSIDE. CALL LIGHT IN REACH. WILL CONTINUE TO MONITOR.
--- NOTE | 2018-09-13 03:39 | NUR ---
DR RAYMOND ORDERED STRAIGHT CATH FOR URINARY RETENTION FOR OVER 800 mL. PATIENT UNABLE TO VOID AFTER MULTIPLE TRIES STANDING WITH ONE ASSIST, ASHLEY. BLADDER SCANNED AT 805-900 mL RETENTION. STRAIGHT CATH 820 mL OUT. PATIENT REPORTS RELIEF. FLOMAX 0.4MG SCHEDULE FOR 09:00. CALL LIGHT IN REACH.
--- NOTE | 2018-09-13 04:10 | NUR ---
SHIFT SUMMARY PATIENT UNABLE TO VOID THIS SHIFT, NEW ADMIT. DR RAYMOND ORDERED STRAIGHT CATH PRN FOR OVER 800mL RETENTION. PATIENT BLADDER SCAN 820-900 mL. STRAIGHT CATH 820 mL OUT. PATIENT REPORTS RELIEF. FLOMAX 0.4 MG TO START IN AM. PATIENT IS AXO X4 AND ONE ASSIST, L AKA. ON 2L O2 NC. [place] AND NO RIGHT HEARING AID, AT HOME. PIV REMAINS INTACT. IV ABX INFUSING. MARKET RISK ANALYST REPORTS PACED AT 60'S W/FLUTTER. PATIENT USES URINAL AT BEDSIDE. AC/HS START IN AM. VSS/AFEBRILE. DENIES PAIN AND N/V. CALL LIGHT IN REACH. BED IN LOWEST POSITION. WILL CONTINUE TO MONITOR UNTIL DAY SHIFT NURSE ASSUMES CARE.
[2018-09-13 04:56] LABS: BASOPHILS PERCENT AUTO 0 % (0-2); EOSINOPHILS ABSOLUTE AUTO 0.01 K/mm3 (0.00-0.68); EOSINOPHILS PERCENT AUTO 0 % (0-6); Hematocrit 29.5 % (37.0-53.0); Hemoglobin 9.3 g/dL (13.5-17.5); IMMATURE GRAN ABSOLUTE AUTO 0.01 K/mm3 (0.00-0.10); IMMATURE GRAN PERCENT AUTO 0 % (0-1); LYMPHOCYTES ABSOLUTE AUTO 0.63 K/mm3 (0.84-5.20); LYMPHOCYTES PERCENT AUTO 20 % (21-46); MONOCYTES ABSOLUTE AUTO 0.21 K/mm3 (0.16-1.47); MONOCYTES PERCENT AUTO 7 % (4-13); Mean Corpuscular HGB 32.1 pg (26.0-34.0); Mean Corpuscular HGB Conc 31.5 g/dL (31.5-36.5); Mean Corpuscular Volume 102 fL (80-100); Mean Platelet Volume 9.1 fL (9.1-12.4); NEUTROPHILS ABSOLUTE AUTO 2.25 K/mm3 (1.96-9.15); NEUTROPHILS PERCENT AUTO 72 % (41-73); Platelet Count 99 K/mm3 (150-400); RDW Coefficient Variation 15.8 % (11.7-14.2); RDW Standard Deviation 58.3 fL (35.1-46.3); White Blood Cell Count 3.11 K/mm3 (4.00-11.30)
[2018-09-13 05:07] LABS: Alanine Aminotransfer (ALT/SGP 31 U/L (12-78); Albumin, Blood 2.1 g/dL (3.4-5.0); Albumin/Globulin Ratio 0.7 (0.8-1.8); Alk Phos 69 U/L (50-136); Anion Gap 8 mmol/L (6-16); Aspartate Aminotrans (AST/SGOT 27 U/L (12-37); Bilirubin, Total 1.4 mg/dL (0.1-1.0); Blood Urea Nitrogen 14 mg/dL (8-24); Bun/Creatinine Ratio 15.5 (12.0-20.0); CO2, Blood 33 mmol/L (21-32); Calcium, Blood 7.8 mg/dL (8.5-10.1); Chloride, Blood 97 mmol/L (98-108); Creatinine, Blood 0.91 mg/dL (0.60-1.20); Globulin, Blood 3.2 g/dL (2.2-4.0); Glomerular Filtration Rate >60 (60-); Glucose, Blood 227 mg/dL (70-99); Potassium, Blood 3.6 mmol/L (3.5-5.5); Sodium, Blood 138 mmol/L (136-145); Total Protein, Blood 5.3 g/dL (6.4-8.2)
--- NOTE | 2018-09-13 05:11 | NUR ---
PHARMACY REPORTS TO START IV ZOSYN THIS SHIFT. ZOSYN SENT BY PHARMACY AND STARTED PER EMAR.
--- NOTE | 2018-09-13 16:48 | NUR ---
SHIFT SUMMARY NO CHANGES IN ASSESSMENT AT THIS TIME. PT SATING IN THE 90S ON 2L VIA NC. DENIES SOB OR PAIN. ENCOURAGED UP IN CHAIR FOR MEALS. PT SAT UP IN CHAIR FOR LUNCH. AT BEDSIDE. IN ADVANCED TO AN ADA DIET. TOLERATING WELL. PT VOIDED 550CC AT 1200. WILL CONTINUE TO MONITOR FOR RETENTION. VSS. WILL CONTINUE TO MONITOR UNTIL TURNOVER IS COMPLETE.
--- NOTE | 2018-09-13 18:48 | NUR ---
FIELD START PT REFUSED TO HAVE WORKING FIELD START REMOVED.
--- NOTE | 2018-09-14 03:20 | NUR ---
SHIFT SUMMARY PATIENT HAD NO ACUTE CHANGES OBSERVED THIS SHIFT. AXO X3 AND ONE ASSIST TO BSCSaida. USES URINAL AT BEDSIDE. ON 2L O2 NC. IGNITER ASSEMBLER REPORTS PACED IN 60'S. PIV REMAIN INTACT. IV ABXS INFUSED. DENIES PAIN, SOB, AND N/V. VSS/AFEBRILE. PATIENT ABLE TO VOID THIS SHIFT. DROPLET PRECAUTIONS. CBG 140. CALL LIGHT IN REACH. BED IN LOWEST POSITION. WILL CONTINUE TO MONITOR UNTIL DAY SHIFT NURSE ASSUMES CARE.
--- NOTE | 2018-09-14 17:02 | NUR ---
HE HAS NO COMPLAINTS. HE AMBULATED IN THE ROOM TODAY WITH A WAKER AND 1 ASSIST. HE SHOWERED. TELE IS PACED RATE 60. [place]. 1 COUGHING SPELL NOTED. ROBITUSSEN GIVEN. SPUTUM CLEAR TO PALE YELLOW. CPAP OFF DURING THE DAY. RT NOTIFIED THAT HE NEEDS A FLUTTER VALVE. PAS ON OVER HIS SUPPORT STOCKING ON HIS R LEG. L AKA STUMP WITHOUT PROBLEMS. NEW SPUTUM CUP PUT AT BEDSIDE WITH INSTRUCTIONS FOR SAMPLE. WEARS 2L O2.
[2018-09-14 19:30] LABS: Vancomycin, Trough 8.1 ug/mL (5.0-10.0)
[2018-09-15 04:56] LABS: BASOPHILS ABSOLUTE AUTO 0.01 K/mm3 (0.00-0.23); BASOPHILS PERCENT AUTO 0 % (0-2); EOSINOPHILS ABSOLUTE AUTO 0.01 K/mm3 (0.00-0.68); EOSINOPHILS PERCENT AUTO 0 % (0-6); Hematocrit 27.9 % (37.0-53.0); Hemoglobin 8.5 g/dL (13.5-17.5); IMMATURE GRAN ABSOLUTE AUTO 0.01 K/mm3 (0.00-0.10); IMMATURE GRAN PERCENT AUTO 0 % (0-1); LYMPHOCYTES ABSOLUTE AUTO 1.13 K/mm3 (0.84-5.20); LYMPHOCYTES PERCENT AUTO 39 % (21-46); MONOCYTES ABSOLUTE AUTO 0.19 K/mm3 (0.16-1.47); MONOCYTES PERCENT AUTO 7 % (4-13); Mean Corpuscular HGB 32.1 pg (26.0-34.0); Mean Corpuscular HGB Conc 30.5 g/dL (31.5-36.5); Mean Platelet Volume 9.2 fL (9.1-12.4); NEUTROPHILS ABSOLUTE AUTO 1.52 K/mm3 (1.96-9.15); NEUTROPHILS PERCENT AUTO 53 % (41-73); Platelet Count 107 K/mm3 (150-400); RDW Coefficient Variation 15.8 % (11.7-14.2); RDW Standard Deviation 59.8 fL (35.1-46.3); Red Blood Cell Count 2.65 M/mm3 (4.30-5.90); White Blood Cell Count 2.87 K/mm3 (4.00-11.30)
[2018-09-15 04:59] LABS: Mean Corpuscular Volume 105 fL (80-100)
[2018-09-15 05:17] LABS: Anion Gap 9 mmol/L (6-16); Blood Urea Nitrogen 23 mg/dL (8-24); Bun/Creatinine Ratio 21.9 (12.0-20.0); CO2, Blood 29 mmol/L (21-32); Calcium, Blood 7.6 mg/dL (8.5-10.1); Chloride, Blood 102 mmol/L (98-108); Creatinine, Blood 1.05 mg/dL (0.60-1.20); Glomerular Filtration Rate >60 (60-); Glucose, Blood 139 mg/dL (70-99); Phosphorus, Blood 3.5 mg/dL (2.5-4.9); Potassium, Blood 3.5 mmol/L (3.5-5.5); Sodium, Blood 140 mmol/L (136-145)
--- NOTE | 2018-09-15 05:21 | NUR ---
*SHIFT SUMMARY* PATIENT IS ALERT AND ORIENTED. VERY HARD OF HEARING, HAS HEARING AIDS IN ROOM. PATIENT IS ON 2L NC AND USES CPAP AT NIGHT. USES URINAL AT BEDSIDE. PATIENT HAS A LEFT AKA, 1 ASSIST WITH WALKER. PATIENT PULLED IV OUT DURING SHIFT FROM REPOSITIONING IN BED. NEW IV STARTED. PATIENT AWOKE THIS AM COMPLAINING OF SOB. IT WAS NOTED THAT THE PATIENTS CPAP WAS ON HIS FACE BUT THE MACHINE WAS TURNED OFF. MACHINE TURNED BACK ON AND SOB DECREASED. PT SLEPT THROUGHOUT MOST OF THE SHIFT. PATIENT ALSO AWOKE AROUND 0300 COMPLAINING OF LEG PAIN. SCD REMOVED AND PAIN DECREASED. LEFT SCD OFF LEG FOR NOW. CALL LIGHT IN REACH, BED LOWERED AND LOCKED. VITALS STABLE
--- NOTE | 2018-09-15 18:35 | NUR ---
SHIFT SUMMARY PT A&OX3. CALM AND COOPERATIVE WITH CARE. PT NIKOLAI. PT UP IN CHAIR FOR MEALS AND TO BSC WITH 1 PERSON ASSIST. PT WEARING 2L O2 VIA NC, CPAP AT [facility]. SOB WITH EXERTION, O2 SATURATIONS >90%. PT RECEIVING PO TAMIFLU AND IV ANTIBIOTICS. PT/FAMILY REQUESTING TO GO TO [facility] UPON DISCHARGE, DISCHARGE PLANNING AWARE. PT HAS L AKA AMPUTATION, NOT USEING AT THIS TIME DUE TO WEAKNESS. VSS. NO OTHER ACUTE CHANGES NOTED DURING SHIFT. WILL CONTINUE TO MONITOR UNTIL REPORT GIVEN TO ONCOMING RN.
--- NOTE | 2018-09-16 04:17 | NUR ---
SHIFT SUMMARY PT SLEPT OFF AND ON THROUGHOUT THE NIGHT. ON 2 L O2 NC UNTIL CPAP WAS PUT ON BEFORE BED. O2 SATS IN THE LOW 90'S. PT HAD DRY HARSH NAGGING NONPRODUCTIVE COUGH AT START OF SHIFT. ROBITUSSIN GIVEN AND EFFECTIVE. LUNG SOUNDS DIMINISHED WITH SOME EXPIRATORY WHEEZES. PT HAS LAKA, TRANSFERS WELL WITH ONE ASSIST TO BSC. ONLY PAIN REPORTED WAS SOME ABD MUSCLE DISCOMFORT FROM COUGHING THAT RESOLVED AFTER COUGHING RESOLVED. TELEMETRY ON, PT PACED AT 60. PT UP TO BSC SEVERAL TIMES THIS SHIFT WITH ONE LARGE SOFT BLACK BM REPORTED BY STONE BANKER. PT VERY [place], BUT PLEASANT AND COOPERATIVE AND APPROPRIATE. RESTING IN BED AT THIS TIME. WILL CONTINUE TO MONITOR AND REPORT TO DAY RN.
[2018-09-16] MEDS ORDERED: ONDA4ODT MM (10:52)
[2018-09-16] MEDS ORDERED: OSEL75CA PO (10:53)
[2018-09-16] MEDS ORDERED: HUMALOG KW200 UNIT/1 SC (10:53)
[2018-09-16] MEDS ORDERED: Amox Tr-K Clv1 EAC2 PO (10:55)
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
--- NOTE | 2018-09-16 16:29 | NUR ---
SUMMARY/DISCHARGE [facility], REPORT CALLED TO MOE THE NURSE, PT'S SPOUSE HAS BEEN NOTIFIED, [facility] TRANSPORTING VIA WHEELCHAIR
== END 2018-09-16 16:25 | DRG 193 ==
LOC: ER 12:52 → ERHOLD 16:06 → MEDS 22:33 → ENPENDDIS 09-16 10:54 → MEDS 09-16 16:25
PROVIDERS: Emergency Medicine; Internal Medicine; ADMIT Internal Medicine
DX: J10.1 Influenza due to other identified influenza virus with other respiratory manifestations (principal); J96.21 Acute and chronic respiratory failure with hypoxia; J44.1 Chronic obstructive pulmonary disease with (acute) exacerbation; J44.0 Chronic obstructive pulmonary disease with (acute) lower respiratory infection; D61.818 Other pancytopenia; J18.9 Pneumonia, unspecified organism; E11.9 Type 2 diabetes mellitus without complications; I25.10 Atherosclerotic heart disease of native coronary artery without angina pectoris; I73.9 Peripheral vascular disease, unspecified; R26.9 Unspecified abnormalities of gait and mobility; Y95 Nosocomial condition; I10 Essential (primary) hypertension; E78.5 Hyperlipidemia, unspecified; K21.9 Gastro-esophageal reflux disease without esophagitis; N40.0 Benign prostatic hyperplasia without lower urinary tract symptoms; M10.9 Gout, unspecified; Z66 Do not resuscitate; Z86.718 Personal history of other venous thrombosis and embolism; Z95.1 Presence of aortocoronary bypass graft; Z95.5 Presence of coronary angioplasty implant and graft; Z89.612 Acquired absence of left leg above knee; Z79.01 Long term (current) use of anticoagulants; Z79.84 Long term (current) use of oral hypoglycemic drugs; Z79.82 Long term (current) use of aspirin; Z79.51 Long term (current) use of inhaled steroids; Z79.899 Other long term (current) drug therapy; Z88.5 Allergy status to narcotic agent; Z88.8 Allergy status to other drugs, medicaments and biological substances; Z87.891 Personal history of nicotine dependence
CPT/HCPCS: 36415; 71046; 80053; 80069; 80202; 82607; 82746; 82947; 83605; 83880; 84484; 85025; 85610; 87040; 87070; 87077; 87186; 87205; 87804; 93005; 93010; 94640; 94644; 94760; 94761; 96374; 96375; 97110; 97161; 97530; 99285-25; J2543; J3370; J7050

== ENCOUNTER 2019-04-14 06:22 | Day surgery (SDC) | payer OTHER, MEDICARE ==
[~2019-04-14] VITALS: Ht 175.3 cm; Wt 75.4 kg
[~2019-04-14 06:22] MED LIST changes: +Amox Tr-K Clv1 EAC2 PO; +CARV6.25; -Carvedilol6.25 MG PO; +HUMALOG KW200 UNIT/1 SC; +HYDMOR2; +LOSA25; +OSEL75CA PO; +PANT40; +POTA20LUD PO
--- NOTE | 2019-04-14 12:09 | NUR ---
ACCESS SITE RE EVALUATED AFTER HOLDING MANUAL PRESSURE FOR 5 MINS. NO ADDITIONAL BLEEDING OR OOZING NOTED OUT OF MARKED LINE THAT WAS DRAWN POST MANUAL HOLD. VSS. PT LAYING IN BED WITH EYES CLOSED. IS EASILY ARROUSABLE. IS SNORING. WILL CONTINUE TO MONITOR.
--- NOTE | 2019-04-15 04:44 | NUR ---
SHIFT SUMMARY AOX4. LS WHEEZY, SOB W/ACTIVITY. CPAP AT NIGHT. WEARS 2L AT HOME. HX OF COPD. NO C/O NAUSEA. NO PAIN WHEN LAYING IN BED, 10/10 IN SHOULDERS WHEN MOVING. R LEG THROMBECTOMY, GAUZE DRESSING BEHIND R KNEE HAS SMALL AMOUNT OF DRAINAGE. L AKA. USES WALKER AND POWER CHAIR AT BASELINE. IV IN L ARM IS SL. WILL DC TODAY, [facility] ARE FOR DC.
[2019-04-28] MEDS ORDERED: ALLERGY RELIEF (14:24)
[2019-04-28] MEDS ORDERED: Multiple Vitam1 EAC1 PO (14:25)
[2019-04-28] MEDS ORDERED: Pulmicort Fle180 MCG INH (14:26)
[2019-04-28] MEDS ORDERED: LIDO700A20 TOP (14:28)
[2019-04-28] MEDS ORDERED: LOSA25 (14:28)
[2019-04-28] MEDS ORDERED: LOSA25 PO ×2 (14:28→14:29)
[2019-04-28] MEDS ORDERED: STIOLTO RESPIMAT4 GM INH (14:29)
[2019-04-28] MEDS ORDERED: XARELTO15 MG PO (14:31)
== END 2019-04-15 11:03 | disposition home or self-care (01) ==
LOC: MHTC 06:22 → MEDS 19:32 → MHTC 19:32 → MEDS 23:35 → MHTC 04-15 11:03
PROC: 06CC3ZZ Extirpation of Matter from Right Common Iliac Vein, Percutaneous Approach (ICD-10-PCS; principal; 2019-04-14)
PROC: 06CM3ZZ Extirpation of Matter from Right Femoral Vein, Percutaneous Approach (ICD-10-PCS; 2019-04-14)
PROC: 067C3ZZ Dilation of Right Common Iliac Vein, Percutaneous Approach (ICD-10-PCS; 2019-04-14)
PROC: 067M3ZZ Dilation of Right Femoral Vein, Percutaneous Approach (ICD-10-PCS; 2019-04-14)
DX: I82.431 Acute embolism and thrombosis of right popliteal vein (principal); I25.10 Atherosclerotic heart disease of native coronary artery without angina pectoris; I10 Essential (primary) hypertension; E11.9 Type 2 diabetes mellitus without complications; J44.9 Chronic obstructive pulmonary disease, unspecified; N40.0 Benign prostatic hyperplasia without lower urinary tract symptoms; K21.9 Gastro-esophageal reflux disease without esophagitis; G47.33 Obstructive sleep apnea (adult) (pediatric); E55.9 Vitamin D deficiency, unspecified; Z99.89 Dependence on other enabling machines and devices; Z91.011 Allergy to milk products; Z88.5 Allergy status to narcotic agent; Z88.8 Allergy status to other drugs, medicaments and biological substances; Z79.899 Other long term (current) drug therapy; Z79.51 Long term (current) use of inhaled steroids
CPT/HCPCS: 36010; 36011; 37187; 37248; 37249; 75820; 75825; 82947; 93971; 94640; 94660; 94760; 94762; 99152; 99153; C1724; C1725; C1769; C1887; C1894; J1644; J2250; J2997; J3010; J7030; Q9967

== ENCOUNTER 2019-04-29 05:36 | Observation (INO) | payer OTHER, MEDICARE ==
[~2019-04-29] VITALS: Ht 175.3 cm; Wt 77.0 kg
[~2019-04-29 05:36] MED LIST changes: +ALLERGY RELIEF; +LIDO700A20 TOP; +Multiple Vitam1 EAC1 PO; +Pulmicort Fle180 MCG INH; +STIOLTO RESPIMAT4 GM INH; +XARELTO15 MG PO
--- NOTE | 2019-04-29 08:42 | NUR ---
PT ARRIVES TO RECOVERY ROOM SUPINE ON GURNEY WITH 8 FR SHEATH IN RIGHT POPLITEAL VEIN. SHEATH SECURED IN PLACED WITH CLEAR TEGADERM. LINUS WEBB RN STARTING TPA DRIP TO SHEATH, HEPARIN DRIP TO PERIPHERAL IV. ORDERED TO RUN OVER [address] MORTENSEN IS TO TAKE PT BACK INTO [facility] FOR ANOTHER ANGIOGRAPHY PHOTO, THEN PT TO BE DISCHARGED HOME. PT WITH AKA ON LEFT SIDE. VSS. WILL CONTINUE TO MONITOR.
--- NOTE | 2019-04-29 11:17 | NUR ---
TPA AND HEPARIN STILL INFUSING. PT AWAKE AND TALKING, ALERT TO SELF AND SURROUNDINGS. DENIES PAIN. SHEATH REMAINS IN RIGHT POPLITEAL VEIN DRESSING C/D/I. RIGHT FOOT DP/PT 1+. PINK WARM AND DRY.
--- NOTE | 2019-04-29 15:25 | NUR ---
RIGHT POPLITEAL SHEATH HAS BEEN REMOVED, JULIO PAD AND CLEAR TEGADERM INTACT. SITE STABLE NO ACTIVE BLEEDING, OOZING, OR PAIN NOTED. EATING AND DRINKING WITH NO DIFFICULTIES. PRESENT AT BEDSIDE. DISCHARGE INSTRUCTIONS REVIEWED WITH BOTH PARTIES. PT AND VERBALIZED UNDERSTANDING OF D/C INSTRUCTIONS. WILL CONTINUE TO MONITOR SITE.
--- NOTE | 2019-04-29 16:58 | NUR ---
PT ATTEMPTED TO STAND 3-4 TIMES USING FWW, AFTER STANDING, SITTING ON EDGE OF BED, C/O FEELING "FLUSHED AND HOT." ASSISTED BACK INTO BED, POSITIONED AT 45 DEGREES. RIGHT LEFT RESTING ON PILLOW, PT REQUEST ICE PACK. C/O 10/10 PAIN. BP DROP 85/49 RECHECKED AND 85/49. NS BOLUS STARTED. RIGHT CALF TO MID THIGH SWELLING. DR OBREGON CALLED TO BEDSIDE. DR MORTENSEN PAGED. BP INCREASED TO 125/59. DOPPLER PULSES PRESENT TO DP/PT.
--- NOTE | 2019-04-29 17:09 | NUR ---
DR MORTENSEN TO BEDSIDE FOR EVAL. PLAN FOR ADMISSION OVER NIGHT TO HOSPITAL.
--- NOTE | 2019-04-29 17:28 | NUR ---
REPORT TO SKYLAR SALVADOR RN TO ASSUME CARE OF PT AT THIS TIME. PT PREVIOUSLY MEDICATED WITH FENTANYL 50 MCG IVP FOR 10/10 RIGHT LEG PAIN. PT PENDING ADMISSION.
--- NOTE | 2019-04-29 17:40 | NUR ---
ASSUMED CARE OF PT. PT IS ALERT AND ORIENTED, PLEASENT AND COOPERATIVE. PT REPORTS RLE DISCOMFORT 9/10, ACHEY IN CHARACTER-REPORTS IMPROVED AFTER FENTANYL IVP. PT DENIES SOB OR NAUSEA. MONITOR V PACED 60, B/P 143/63, HEPARIN DRIP AT 6.49 UNITS/KG/HR, SPO2 97% 2L NC. RLE: TRACE EDEMA FROM KNEE DOWN, DOPPLER PULSES X 2, POSITIVE CAP REFILL AND SENSATION. R POPLIEAL SITE: SOFT, JULIO AND TEGADERM INTACT.
[2019-04-29 19:41] LABS: Hematocrit 34.6 % (37.0-53.0); Hemoglobin 10.8 g/dL (13.5-17.5); Mean Corpuscular HGB 31.6 pg (26.0-34.0); Mean Corpuscular HGB Conc 31.2 g/dL (31.5-36.5); Mean Corpuscular Volume 101 fL (80-100); Mean Platelet Volume 9.6 fL (9.1-12.4); Platelet Count 144 K/mm3 (150-400); RDW Coefficient Variation 14.1 % (11.7-14.2); Red Blood Cell Count 3.42 M/mm3 (4.30-5.90); White Blood Cell Count 6.28 K/mm3 (4.00-11.30)
[2019-04-29 19:59] LABS: Anion Gap 4 mmol/L (6-16); Blood Urea Nitrogen 18 mg/dL (8-24); Bun/Creatinine Ratio 16.2 (12.0-20.0); CO2, Blood 27 mmol/L (21-32); Calcium, Blood 8.3 mg/dL (8.5-10.1); Chloride, Blood 111 mmol/L (98-108); Creatinine, Blood 1.11 mg/dL (0.60-1.20); Glomerular Filtration Rate >60 (60-); Glucose, Blood 178 mg/dL (70-99); Potassium, Blood 4.1 mmol/L (3.5-5.5); Sodium, Blood 142 mmol/L (136-145)
[2019-04-30 04:08] LABS: Hematocrit 32.4 % (37.0-53.0); Hemoglobin 9.9 g/dL (13.5-17.5); Mean Corpuscular HGB 30.5 pg (26.0-34.0); Mean Corpuscular HGB Conc 30.6 g/dL (31.5-36.5); Mean Corpuscular Volume 100 fL (80-100); Mean Platelet Volume 10.1 fL (9.1-12.4); Platelet Count 152 K/mm3 (150-400); RDW Coefficient Variation 14.1 % (11.7-14.2); RDW Standard Deviation 50.8 fL (35.1-46.3); Red Blood Cell Count 3.25 M/mm3 (4.30-5.90); White Blood Cell Count 5.22 K/mm3 (4.00-11.30)
[2019-04-30 04:27] LABS: Anion Gap 4 mmol/L (6-16); Blood Urea Nitrogen 16 mg/dL (8-24); Bun/Creatinine Ratio 14.2 (12.0-20.0); CO2, Blood 27 mmol/L (21-32); Calcium, Blood 8.1 mg/dL (8.5-10.1); Chloride, Blood 111 mmol/L (98-108); Creatinine, Blood 1.13 mg/dL (0.60-1.20); Glomerular Filtration Rate >60 (60-); Glucose, Blood 121 mg/dL (70-99); Sodium, Blood 142 mmol/L (136-145)
--- NOTE | 2019-04-30 05:38 | NUR ---
SHIFT SUMMARY PT SLEEPING IN ROOM COMFORTABLY AT THSI TIME. NO ACUTE CHANGES IN STATSU T/O NGIHT. PT SLEPT WELL AND REPORTED PAIN TO LEG AND BACK ONCE, AND WAS MEDICATED PER EMAR. RESP EVEN UNLABORED ON 2L NC W/S SATS >92%. PT DENIED ANY CP OR SOB. R LEG REMAINED WARM TO TOUCH AND CAP REFIL REMAINED <3 SECONDS. RLE ELEVATED ON PILLOW T/O NIGHT. PT DENIED OTHER NEEDS. CALL LIGHT IN REACH. PT CALLAS APPROPRIATELY.
--- NOTE | 2019-04-30 06:55 | NUR ---
recvd report from previous RN Sonia, pt sitting up in bed, a/o x 4, pleasant/cooperative, [place] with hearing aids in. bed in lowest position, bed rails up x 2, call light within reach. pt reports he has been doing foot pumps and ankle rools, straightening/flexing operative limb
--- NOTE | 2019-04-30 07:05 | NUR ---
recvd report from previous shift RN Sonia, pt awake/alert x 4, pleasant/cooperative. call light within reach, bed rails up x 2, bed in lowest position. pt requests to stand and stretch leg this AM. will assess with pt animal care attendant up on assessment
--- NOTE | 2019-04-30 08:44 | NUR ---
dr hsu rounded on pt, pharmacy to manage heparin drip, will draw PTT/INR and adjust dose.
[2019-04-30 09:48] LABS: International Normalized Ratio 1.14; Prothrombin Time Results 11.9 Sec (9.7-11.5)
[2019-04-30] MEDS ORDERED: LOSA25 PO (16:56)
[2019-04-30] MEDS ORDERED: HYDPAM50 PO (16:57)
--- NOTE | 2019-04-30 18:25 | NUR ---
PT AND PROVIDED WITH DISCHARGE INSTRUCTIONS, PRINTED MATERIAL/EDUCATION, PERIPHERAL IV REMOVAL WNL. PT AND STATE UNDERSTANDING OF INSTRUCTIONS. PT'S TRANSPORTED PT'S BELONGINGS TO AWAITING VEHICLE. PT WILL BE TRANSFERRED TO VEHICLE VIA WHEELCHAIR FOLLOWING ASSISTANCE WITH DRESSING.
== END 2019-04-30 18:30 | disposition home or self-care (01) ==
LOC: MHTC 05:36 → PCU 18:55 → MHTC 19:19 → PCU 19:19
PROVIDERS: Internal Medicine; ADMIT Radiology Diagnostic Radiology
DX: R60.0 Localized edema (principal); I82.409 Acute embolism and thrombosis of unspecified deep veins of unspecified lower extremity; I73.9 Peripheral vascular disease, unspecified; I11.0 Hypertensive heart disease with heart failure; I50.32 Chronic diastolic (congestive) heart failure; I25.10 Atherosclerotic heart disease of native coronary artery without angina pectoris; E78.5 Hyperlipidemia, unspecified; J44.9 Chronic obstructive pulmonary disease, unspecified; K21.9 Gastro-esophageal reflux disease without esophagitis; N40.0 Benign prostatic hyperplasia without lower urinary tract symptoms; Z95.1 Presence of aortocoronary bypass graft; Z95.5 Presence of coronary angioplasty implant and graft; Z87.891 Personal history of nicotine dependence; Z88.5 Allergy status to narcotic agent; Z88.8 Allergy status to other drugs, medicaments and biological substances; Z91.011 Allergy to milk products; Z79.899 Other long term (current) drug therapy; Z79.51 Long term (current) use of inhaled steroids; Z99.81 Dependence on supplemental oxygen; Z98.890 Other specified postprocedural states; Z86.718 Personal history of other venous thrombosis and embolism
CPT/HCPCS: 36415; 37187; 37212; 37248; 75820; 75825; 75898; 76937; 80048; 82947; 85027; 85610; 85730; 94640; 94760; 99152; 99153; A9270; C1724; C1725; C1769; C1887; C1894; J1644; J2250; J2997; J3010; J7030; J7040; Q9967

== ENCOUNTER 2019-07-07 07:20 | Inpatient (IN) | payer OTHER, MEDICARE ==
[~2019-07-07] VITALS: Ht 175.3 cm; Wt 73.2 kg
[2019-07-07 07:51] LABS: Source, Urine Catheter
[2019-07-07 07:53] LABS: BASOPHILS ABSOLUTE AUTO 0.03 K/mm3 (0.00-0.23); BASOPHILS PERCENT AUTO 0 % (0-2); EOSINOPHILS ABSOLUTE AUTO 0.06 K/mm3 (0.00-0.68); EOSINOPHILS PERCENT AUTO 1 % (0-6); Hematocrit 41.1 % (37.0-53.0); Hemoglobin 12.4 g/dL (13.5-17.5); IMMATURE GRAN ABSOLUTE AUTO 0.04 K/mm3 (0.00-0.10); IMMATURE GRAN PERCENT AUTO 0 % (0-1); LYMPHOCYTES ABSOLUTE AUTO 1.15 K/mm3 (0.84-5.20); LYMPHOCYTES PERCENT AUTO 11 % (21-46); MONOCYTES ABSOLUTE AUTO 0.41 K/mm3 (0.16-1.47); MONOCYTES PERCENT AUTO 4 % (4-13); Mean Corpuscular HGB Conc 30.2 g/dL (31.5-36.5); Mean Corpuscular Volume 96 fL (80-100); Mean Platelet Volume 9.6 fL (9.1-12.4); NEUTROPHILS ABSOLUTE AUTO 8.99 K/mm3 (1.96-9.15); NEUTROPHILS PERCENT AUTO 84 % (41-73); Platelet Count 171 K/mm3 (150-400); RDW Coefficient Variation 14.5 % (11.7-14.2); RDW Standard Deviation 51.3 fL (35.1-46.3); Red Blood Cell Count 4.27 M/mm3 (4.30-5.90); White Blood Cell Count 10.68 K/mm3 (4.00-11.30)
[2019-07-07 07:55] LABS: Bilirubin, Urine Neg (Neg); Blood, Urine Neg (Neg); Glucose Qualitative, Urine Neg (Neg); Ketones, Urine Neg (Neg); Leukocyte Esterase, Urine 1+ (Neg); Nitrite, Urine Neg (Neg); Protein, Urine 2+ (Neg); Urobilinogen, Urine NORM (Normal)
[2019-07-07] MEDS ORDERED: FURO20 PO (08:04)
[2019-07-07 08:06] LABS: Appearance, Urine Clear (Clear); Color, Urine Yellow (P-Yellow)
[2019-07-07] MEDS ORDERED: TRAM50 PO (08:06)
[2019-07-07] MEDS ORDERED: ROSU10TA PO (08:06)
[2019-07-07 08:07] LABS: Bacteria Not Seen /hpf; Red Blood Cells, Urine Not Seen /hpf (0-2); Squamous Epithelial Cells Rare /hpf (Few); White Blood Cells, Urine 0-2 /hpf (0-5)
[2019-07-07 08:09] LABS: Bun/Creatinine Ratio 21.4 (12.0-20.0); Calcium, Blood 9.1 mg/dL (8.5-10.1); Creatinine, Blood 1.26 mg/dL (0.60-1.20)
--- NOTE | 2019-07-07 14:42 | NUR ---
NG tube Tube placed and verified by this RN through aspiration and auscultation. Portable chest x ray ordered for definitive confirmation.
[2019-07-07] MEDS ORDERED: LIDO700A20 TOP (14:56)
[2019-07-07] MEDS ORDERED: SENN187 PO (15:02)
[2019-07-07] MEDS ORDERED: NOVOLOG100 UNIT/1 SC (16:45)
--- NOTE | 2019-07-07 16:58 | NUR ---
Orders for blood sugar and SCD's Received orders for Q6 blood glucose checks with low SS insulin coverage. Also received orders for SCD applied to R leg.
--- NOTE | 2019-07-07 18:03 | NUR ---
MRSA CLEARANCE Attempted to initiate MRSA clearance swabs; however, patient currently has NG tube on R nostril and the left nostril is "plugged up" according to patient so he refused to allow this RN to insert a swab further than 1 inch. L/M with Infection Control (Danyell) to evaluate this further and help determine whether or not isolation should be continued.
--- NOTE | 2019-07-07 18:26 | NUR ---
Shift Summary A/Ox3, patient arrived on unit around 1300 from ER with oxygen @ 4 LPM, easily awakens to name and touch, though complains of feeling weak and nauseous. was at bedside for initial intake and assessments. NG tube placed, verified, and on low intermittent suction (R nostril per patient request); drained 675mL of yellowish brownish liquid. Nausea has now resolved. No other complaints or acute concerns at this time. Will continue to monitor.
--- NOTE | 2019-07-08 01:15 | NUR ---
07/08/19 0100 PT HAS BEEN UNABLE TO VOID. STRAIGHT CATH WITH WIND TUNNEL ENGINEER. FOR 700 CC MOD DK GRISELDA URINE. PT TOLERATED PROCEDURE WELL. REPORT TO PRIMARY NURSE NADIRA RM. CALL LIGHT IN REACH,
--- NOTE | 2019-07-08 03:10 | NUR ---
0030 PT HAS NOT VOIDED SINCE HE WAS STRAIGHT CATHED THIS MORNING. BLADDER SCAN FOUND TO HAVE [address] SHORT NOTIFIED OF PT'S SITUATION. ORDER FOR STRAIGHT AMANDA PLACED. BLADDER SCAN Q4-6HR AND TO STRAIGHT AMANDA WHEN >400ML. DR. SHORT ALSO ORDERED TO ADJUST NS RATE TO 75ML/HR. 0100 PT WAS STRAIGHT CATHED BY CHERYLE RM. 700 ML DRAINED.
--- NOTE | 2019-07-08 04:47 | NUR ---
MANUFACTURING ADVISOR SUMMARY PT A/O X4. SLEPT WELL THROUGHOUT THE NIGHT. NG TUBE ON INTERMITTENT LOW SUCTION. CURRENTLY ON 2 L O2 NASAL CANNULA SATTING IN LOW 90'S. RT SAW PT TOWARDS BEGINNING OF SHIFT AND ATTEMPTED TO PUT CPAP ON. I WAS NOTIFIED BY RT THAT THE CPAP FACEMASK HURT WHILE NG TUBE IS IN PLACE. PT DID NOT SLEEP WITH CPAP ON AND SATTED AROUND LOW 90'S. PT DENIED PAIN, NAUSEA AND DIZZINIES. SEE PREVIOUS NOTE ON BLADDER SCAN. VSS, WILL CONTINUE TO MONITOR.
[2019-07-08 05:05] LABS: BASOPHILS ABSOLUTE AUTO 0.01 K/mm3 (0.00-0.23); BASOPHILS PERCENT AUTO 0 % (0-2); EOSINOPHILS ABSOLUTE AUTO 0.01 K/mm3 (0.00-0.68); EOSINOPHILS PERCENT AUTO 0 % (0-6); Hematocrit 39.3 % (37.0-53.0); Hemoglobin 11.6 g/dL (13.5-17.5); IMMATURE GRAN ABSOLUTE AUTO 0.02 K/mm3 (0.00-0.10); IMMATURE GRAN PERCENT AUTO 0 % (0-1); LYMPHOCYTES PERCENT AUTO 20 % (21-46); MONOCYTES ABSOLUTE AUTO 0.58 K/mm3 (0.16-1.47); MONOCYTES PERCENT AUTO 10 % (4-13); Mean Corpuscular HGB 28.5 pg (26.0-34.0); Mean Corpuscular HGB Conc 29.5 g/dL (31.5-36.5); Mean Corpuscular Volume 97 fL (80-100); Mean Platelet Volume 9.6 fL (9.1-12.4); NEUTROPHILS ABSOLUTE AUTO 3.88 K/mm3 (1.96-9.15); NEUTROPHILS PERCENT AUTO 69 % (41-73); Platelet Count 152 K/mm3 (150-400); RDW Coefficient Variation 14.6 % (11.7-14.2); RDW Standard Deviation 52.1 fL (35.1-46.3); Red Blood Cell Count 4.07 M/mm3 (4.30-5.90)
[2019-07-08 05:19] LABS: International Normalized Ratio 1.28; Prothrombin Time Results 13.3 Sec (9.7-11.5)
[2019-07-08 05:25] LABS: Alanine Aminotransfer (ALT/SGP 19 U/L (12-78); Albumin/Globulin Ratio 0.7 (0.8-1.8); Alk Phos 86 U/L (50-136); Anion Gap 7 mmol/L (6-16); Aspartate Aminotrans (AST/SGOT 14 U/L (12-37); Bilirubin, Total 1.9 mg/dL (0.1-1.0); Blood Urea Nitrogen 24 mg/dL (8-24); Bun/Creatinine Ratio 22.9 (12.0-20.0); CO2, Blood 29 mmol/L (21-32); Calcium, Blood 8.3 mg/dL (8.5-10.1); Chloride, Blood 110 mmol/L (98-108); Creatinine, Blood 1.05 mg/dL (0.60-1.20); Globulin, Blood 4.1 g/dL (2.2-4.0); Glomerular Filtration Rate >60 (60-); Glucose, Blood 144 mg/dL (70-99); Magnesium, Blood 2.1 mg/dL (1.6-2.4); Potassium, Blood 3.8 mmol/L (3.5-5.5); Sodium, Blood 146 mmol/L (136-145); Total Protein, Blood 7.1 g/dL (6.4-8.2)
--- NOTE | 2019-07-08 18:14 | NUR ---
Initial spiritual care note: Mr. Montesinos is personable, smiles easily, and tells me he beleives he is improving. He denied pain/fear/concerns. He has a strong marriage and a hu yandy. He feels well supported by family/friends and enjoys prayer. I happily prayed for healing at bedside per his request. Child Attendant services will remain available.
--- NOTE | 2019-07-08 18:24 | NUR ---
SHIFT SUMMARY. PT PLEASANT, HAS DENIED PAIN, N/V, SOB DURING SHIFT. DR. CANNON IN TO SEE PT THIS AM, HE CLAMPED NG TUBE AND REPORTED THAT NG TUBE MAY BE REMOVED IF NO FURTHER SYMPTOMS OF DISCOMFORT OR IF PT HAS BM AFTER 6 HOURS OF BEING CLAMPED. NG TUBE REMOVED WITHOUT ISSUE AT 1700. AT BEDISIDE INTERMITTENTLY DURING SHIFT, SHE HAS NOW LEFT FOR THE NIGHT. NO NEW CHANGES OR CONCERNS.
[2019-07-09 05:39] LABS: Alanine Aminotransfer (ALT/SGP 22 U/L (12-78); Albumin, Blood 2.8 g/dL (3.4-5.0); Albumin/Globulin Ratio 0.7 (0.8-1.8); Alk Phos 75 U/L (50-136); Anion Gap 5 mmol/L (6-16); Aspartate Aminotrans (AST/SGOT 13 U/L (12-37); Blood Urea Nitrogen 18 mg/dL (8-24); CO2, Blood 29 mmol/L (21-32); Calcium, Blood 8.3 mg/dL (8.5-10.1); Chloride, Blood 112 mmol/L (98-108); Creatinine, Blood 0.95 mg/dL (0.60-1.20); Globulin, Blood 4.1 g/dL (2.2-4.0); Glomerular Filtration Rate >60 (60-); Glucose, Blood 145 mg/dL (70-99); Potassium, Blood 3.8 mmol/L (3.5-5.5); Sodium, Blood 146 mmol/L (136-145); Total Protein, Blood 6.9 g/dL (6.4-8.2)
--- NOTE | 2019-07-09 06:17 | NUR ---
LICENSED INSURANCE SALES AGENT SUMMARY PT A/O X4. COOPERATIVE AND PLEASANT. SLEPT ON AND OFF TONIGHT. PT COMPLAINED OF FEELING NAUSEOUS TOWARDS BEGNNING OF SHIFT. MEDICATED WITH ZOFRAN IV TO WHICH PT REPORTS RELIEF FROM THAT. IN MIDDLE OF SHIFT PT COMPLAINED OF NOT HAVING A BOWEL MOVEMENT SINCE ADMISSION ON 07/07/19 AND STATED HE WOULD LIKE SOME HELP WITH THIS ISSUE. DR. HENDERSON NOTIFIED OF PT'S SITUATION. OIL ENEMA 65 ML BID PRN, DOCUSATE SODIUM PO 100 MG BID AND SENOKOT PO 17.2 MG BID PRN ORDERED. OIL ENEMA GIVEN. PT INSTRUCTED TO STAY IN FUNK POSITION AND HOLD ENEMA IN FOR AT LEAST 15 MIN. PT TRANSFERRED TO COMMODE WITH NO BW. SENNA GIVEN TO PT IN HOPES OF HAVING A BW. PT STATES HE FEELS BLOATED DUE TO NOT HAVING A BOWEL MOVEMENT. PT HAS BEEN PASSING GAS. NS RUNNING AT 75ML/HR. NO ACUTE CHANGES NOTED.
--- NOTE | 2019-07-09 13:51 | NUR ---
NG TUBE REINSERTED, DARK BROWN/GREEN DRAINAGE TO LOW INTERMITTENT SUCTION.
--- NOTE | 2019-07-09 13:56 | NUR ---
NGT PLACED. NGT PLACED TO R NOSTRIL. CLEAR & BROWN FLUID RETURN. PT TOLERATED PROCEDURE WELL. NGT HOOKED UP TO LOW INTERMITTEN SUCTION. NGT SECURED IN PLACE. PT DENIES FURTHER NEEDS.
--- NOTE | 2019-07-09 17:53 | NUR ---
SHIFT SUMMARY. PT REPORTS NAUSEA THROUGH THE NIGHT AND THIS AM, PRN ZOFRAN EFFECTIVE. ABD MORE DISTENDED AND FIRM WHEN COMPARED TO YESTERDAY. DR. CANNON IN TO EVALUATE PT TODAY AND ORDERED THAT NG TUBE BE REPLACED, PROCEDURE COMPLETED. PT DENIES PAIN. AT BEDSIDE INTERMITTENTLY DURING SHIFT.
[2019-07-10 05:19] LABS: BASOPHILS PERCENT AUTO 0 % (0-2); EOSINOPHILS ABSOLUTE AUTO 0.02 K/mm3 (0.00-0.68); EOSINOPHILS PERCENT AUTO 1 % (0-6); Hematocrit 33.2 % (37.0-53.0); Hemoglobin 9.9 g/dL (13.5-17.5); IMMATURE GRAN ABSOLUTE AUTO 0.01 K/mm3 (0.00-0.10); IMMATURE GRAN PERCENT AUTO 0 % (0-1); LYMPHOCYTES ABSOLUTE AUTO 0.91 K/mm3 (0.84-5.20); LYMPHOCYTES PERCENT AUTO 21 % (21-46); MONOCYTES ABSOLUTE AUTO 0.54 K/mm3 (0.16-1.47); MONOCYTES PERCENT AUTO 13 % (4-13); Mean Corpuscular HGB 29.2 pg (26.0-34.0); Mean Corpuscular HGB Conc 29.8 g/dL (31.5-36.5); Mean Corpuscular Volume 98 fL (80-100); Mean Platelet Volume 10.1 fL (9.1-12.4); NEUTROPHILS ABSOLUTE AUTO 2.81 K/mm3 (1.96-9.15); NEUTROPHILS PERCENT AUTO 66 % (41-73); Platelet Count 128 K/mm3 (150-400); RDW Coefficient Variation 14.6 % (11.7-14.2); Red Blood Cell Count 3.39 M/mm3 (4.30-5.90); White Blood Cell Count 4.29 K/mm3 (4.00-11.30)
[2019-07-10 05:40] LABS: Albumin, Blood 2.6 g/dL (3.4-5.0); Anion Gap 5 mmol/L (6-16); Blood Urea Nitrogen 17 mg/dL (8-24); Bun/Creatinine Ratio 18.8 (12.0-20.0); CO2, Blood 28 mmol/L (21-32); Calcium, Blood 8.4 mg/dL (8.5-10.1); Chloride, Blood 115 mmol/L (98-108); Glomerular Filtration Rate >60 (60-); Glucose, Blood 123 mg/dL (70-99); Phosphorus, Blood 3.5 mg/dL (2.5-4.9); Potassium, Blood 3.7 mmol/L (3.5-5.5); Sodium, Blood 148 mmol/L (136-145)
--- NOTE | 2019-07-10 06:45 | NUR ---
SHIFT SUMMARY: A/OX3. MAKES NEEDS KNOWN. ABD SOFT, LLQ TENDER, MILDLY DISTENDED. BT ACTIVE X 4. PT HAD ONE BROWN SMEAR AND EXPULSION OF SUPPOSITORY TONIGHT AFTER SUPPOSITORY ADMINISTERED. SOME NAUSEA AND DRIVE HEAVING AFTER INTERMITTENT SUCTION PAUSED FOR MED ADMINISTRATION. RESOLVED AFTER SUCTION RESUMED. NGT SUCTION PRODUCED 100CC DARK BROWN LIQUID. REPORTS OF THROAT PAIN AND BACK PAIN TONIGHT. STATES SOME IMPROVEMENT IN PAIN WITH PRN ANALGESICS. CONT ON CLEAR LIQUID DIET. BED LOW, CALL BUTTON IN REACH.
--- NOTE | 2019-07-11 04:29 | NUR ---
SHIFT SUMMARY: BP ELEVATED TONIGHT, PRN ANTIHYPERTENSIVE ADMINISTERED ALONG WITH SCHEDULED. INTERMITTENT NGT SUCTION PRODUCING DARK BROWN LIQUID. ABD SOFT, MILDLY DISTENDED W/ LLQ AND RUQ TENDERNESS WITH PALPATION. 1 LIQUID STOOL PRODUCED TONIGHT. DENIES N/V. CONT W/INTERMITTENT COUGH PRODUCING WHITE SPUTUM. LSCTA W/DIM BASES. 02 SATS WNL ON 2L VIA NC. PT STATES HE IS OVERALL FEELING MUCH BETTER AFTER BM'S ON 07/10. PRN ANALGESIC ADMINISTERED FOR CHRONIC BACK PAIN. PT SLEPT A LITTLE BETTER AFTERWARD. CALL BUTTON IN REACH, BED LOW.
--- NOTE | 2019-07-11 19:34 | NUR ---
PT IS A/OX3, PLEASANT AND COOPERATIVE, THE PT IS A 1 PERSON ASSIST TO STAND AND PIVOT TO THE CHAIR, THIS AM THE PT C/O BACK PAIN FENTANYL WAS GIVEN THE PT REORTED THAT IT DIDN'T WORK MEDICATION WAS DC'D AND DILAUDID WAS ORDERED, THE PT WAS MEDICATED X2 WITH DILAUDID, PTS NG TUBE REMAINS INTACT, HAD ONLY ABOUT 250 OUTPUT TODAY, PT CONTINUE TO HAVE BM'S, WAS AT THE BEDSIDE FOR MOST OF THE DAY, CALL LIGHT IN REACH, HEPRIN DRIP INFUSING, CALL LIGHT IN REACH
[2019-07-12 05:15] LABS: BASOPHILS ABSOLUTE AUTO 0.01 K/mm3 (0.00-0.23); BASOPHILS PERCENT AUTO 0 % (0-2); EOSINOPHILS ABSOLUTE AUTO 0.07 K/mm3 (0.00-0.68); EOSINOPHILS PERCENT AUTO 1 % (0-6); Hematocrit 35.8 % (37.0-53.0); Hemoglobin 10.4 g/dL (13.5-17.5); IMMATURE GRAN ABSOLUTE AUTO 0.05 K/mm3 (0.00-0.10); IMMATURE GRAN PERCENT AUTO 1 % (0-1); LYMPHOCYTES ABSOLUTE AUTO 1.05 K/mm3 (0.84-5.20); LYMPHOCYTES PERCENT AUTO 14 % (21-46); MONOCYTES PERCENT AUTO 10 % (4-13); Mean Corpuscular HGB 28.7 pg (26.0-34.0); Mean Corpuscular HGB Conc 29.1 g/dL (31.5-36.5); Mean Corpuscular Volume 99 fL (80-100); NEUTROPHILS ABSOLUTE AUTO 5.45 K/mm3 (1.96-9.15); NEUTROPHILS PERCENT AUTO 74 % (41-73); Platelet Count 137 K/mm3 (150-400); RDW Coefficient Variation 14.8 % (11.7-14.2); RDW Standard Deviation 54.6 fL (35.1-46.3); Red Blood Cell Count 3.62 M/mm3 (4.30-5.90); White Blood Cell Count 7.33 K/mm3 (4.00-11.30)
[2019-07-12 05:57] LABS: Albumin, Blood 2.5 g/dL (3.4-5.0); Anion Gap 9 mmol/L (6-16); Blood Urea Nitrogen 15 mg/dL (8-24); Bun/Creatinine Ratio 14.9 (12.0-20.0); CO2, Blood 25 mmol/L (21-32); Calcium, Blood 8.3 mg/dL (8.5-10.1); Chloride, Blood 116 mmol/L (98-108); Creatinine, Blood 1.01 mg/dL (0.60-1.20); Glomerular Filtration Rate >60 (60-); Glucose, Blood 114 mg/dL (70-99); Phosphorus, Blood 3.3 mg/dL (2.5-4.9); Potassium, Blood 2.9 mmol/L (3.5-5.5); Sodium, Blood 150 mmol/L (136-145)
--- NOTE | 2019-07-12 09:06 | NUR ---
FOAMING MACHINE OPERATOR SUMMARY Patient awake most of night. calling frequently for his dilaudid. He got quite disoriented when it was given to him in the evening, and hospitalist was contacted and ordered one dose of toradol which worked quite well for patients pain, and patient was even able to get to sleep for a couple of hours. pain primarily in low back , shoulders and neck which are chronic. out put of 250 from NG tube, and urine once 150 and another spilled on floor. Heparin currently running at 18 units/kg/hr concurrently with 0.45% saline. Bowel tones present all quads but hypoactive. Last bowel movement 07/11/19
--- NOTE | 2019-07-12 11:30 | NUR ---
WALKED INTO ROOM TO FIND PT. HAD PULLED HIS NG TUBE OUT. DID NOT SEEM AWARE HE HAD DONE SO. WAS REPORTING HE WAS COUGHING UP THICK PHLEGM AND HE NEED WATER TO HELP GET IT OUT, SOMEONE HAD GIVEN HIM ICE WATER AND I NOTICED HIS NG TUBE LAYING ON THE BED. DID NOT APPEAR TO KNOW WHAT I WAS TALKING ABOUT. NOTIFIED DR. DUNN.
--- NOTE | 2019-07-12 18:44 | NUR ---
PT. HAS BEEN SLEEPING MOST OF THE DAY. NO NAUSEA OR VOMITING NOTED SINCE PT. PULLED OUT NG TUBE. SPOUSE STAYED WITH PT. MOST OF THE DAY. PT PLEASANT AND COOPERATIVE BUT APPEARS CONFUSED. VERY [place]. IF PT DOES START TO HAVE N/V ITS POSSIBLE DR. BELLO WILL TAKE HIM TO SURGERY TOMORROW. CLINIMIX STARTED THIS AFTERNOON.
--- NOTE | 2019-07-12 21:48 | NUR ---
20 L WRIST, UNKNOWN INSERTION DATE/ TIME.
--- NOTE | 2019-07-13 03:41 | NUR ---
SHIFT SUMMARY PT ONLY COMPLAINT WAS BACK PAIN THIS SHIFT. PT TX PER EMAR WITH RELIEF. PT HAD NO ISSUES RELATED TO ABD DISCOMFORT OR N/V. PT HAS SLEPT WELL T/O SHIFT. PT CURRENTLY SLEEPING IN NO DISTRESS. CALL LIGHT IN REACH AND BED ALARM ON.
[2019-07-13 04:55] LABS: BASOPHILS ABSOLUTE AUTO 0.01 K/mm3 (0.00-0.23); BASOPHILS PERCENT AUTO 0 % (0-2); EOSINOPHILS ABSOLUTE AUTO 0.14 K/mm3 (0.00-0.68); EOSINOPHILS PERCENT AUTO 2 % (0-6); Hematocrit 35.6 % (37.0-53.0); Hemoglobin 10.4 g/dL (13.5-17.5); IMMATURE GRAN ABSOLUTE AUTO 0.03 K/mm3 (0.00-0.10); IMMATURE GRAN PERCENT AUTO 1 % (0-1); LYMPHOCYTES ABSOLUTE AUTO 1.03 K/mm3 (0.84-5.20); LYMPHOCYTES PERCENT AUTO 18 % (21-46); MONOCYTES ABSOLUTE AUTO 0.53 K/mm3 (0.16-1.47); MONOCYTES PERCENT AUTO 9 % (4-13); Mean Corpuscular HGB 28.7 pg (26.0-34.0); Mean Corpuscular HGB Conc 29.2 g/dL (31.5-36.5); Mean Corpuscular Volume 98 fL (80-100); Mean Platelet Volume 9.7 fL (9.1-12.4); NEUTROPHILS ABSOLUTE AUTO 4.05 K/mm3 (1.96-9.15); NEUTROPHILS PERCENT AUTO 70 % (41-73); Platelet Count 133 K/mm3 (150-400); RDW Coefficient Variation 14.7 % (11.7-14.2); RDW Standard Deviation 53.5 fL (35.1-46.3); Red Blood Cell Count 3.63 M/mm3 (4.30-5.90); White Blood Cell Count 5.79 K/mm3 (4.00-11.30)
[2019-07-13 05:17] LABS: Albumin, Blood 2.3 g/dL (3.4-5.0); Anion Gap 6 mmol/L (6-16); Blood Urea Nitrogen 19 mg/dL (8-24); Bun/Creatinine Ratio 23.8 (12.0-20.0); CO2, Blood 26 mmol/L (21-32); Calcium, Blood 8.3 mg/dL (8.5-10.1); Chloride, Blood 114 mmol/L (98-108); Glomerular Filtration Rate >60 (60-); Glucose, Blood 157 mg/dL (70-99); Phosphorus, Blood 3.3 mg/dL (2.5-4.9); Potassium, Blood 3.4 mmol/L (3.5-5.5); Sodium, Blood 146 mmol/L (136-145)
--- NOTE | 2019-07-13 19:23 | NUR ---
PT. HAS BEEN IN BED ALL DAY WEARING HIS CPAP. NO N/V THIS SHIFT. DILAUDID GIVEN FOR PAIN IN BACK AND LEFT HIP. KPAD PLACED WHICH PT SAID HELPED. DR. BELLO WROTE FOR TORADOL FOR PT'S PAIN AND WANTS IT GIVEN INSTEAD OF DILAUDID FOR PAIN, R/T THE SEDATIVE AFFECT ON THE BOWELS. NO OTHER NOTEABLE CHANGES THIS SHIFT.
[2019-07-14 04:42] LABS: BASOPHILS ABSOLUTE AUTO 0.02 K/mm3 (0.00-0.23); BASOPHILS PERCENT AUTO 0 % (0-2); EOSINOPHILS ABSOLUTE AUTO 0.15 K/mm3 (0.00-0.68); EOSINOPHILS PERCENT AUTO 3 % (0-6); Hematocrit 34.4 % (37.0-53.0); Hemoglobin 10.2 g/dL (13.5-17.5); IMMATURE GRAN ABSOLUTE AUTO 0.02 K/mm3 (0.00-0.10); IMMATURE GRAN PERCENT AUTO 0 % (0-1); LYMPHOCYTES ABSOLUTE AUTO 1.11 K/mm3 (0.84-5.20); LYMPHOCYTES PERCENT AUTO 24 % (21-46); MONOCYTES ABSOLUTE AUTO 0.51 K/mm3 (0.16-1.47); MONOCYTES PERCENT AUTO 11 % (4-13); Mean Corpuscular HGB 28.8 pg (26.0-34.0); Mean Corpuscular HGB Conc 29.7 g/dL (31.5-36.5); Mean Corpuscular Volume 97 fL (80-100); Mean Platelet Volume 9.8 fL (9.1-12.4); NEUTROPHILS ABSOLUTE AUTO 2.86 K/mm3 (1.96-9.15); NEUTROPHILS PERCENT AUTO 61 % (41-73); Platelet Count 137 K/mm3 (150-400); RDW Coefficient Variation 14.6 % (11.7-14.2); RDW Standard Deviation 52.1 fL (35.1-46.3); Red Blood Cell Count 3.54 M/mm3 (4.30-5.90); White Blood Cell Count 4.67 K/mm3 (4.00-11.30)
[2019-07-14 05:13] LABS: Albumin, Blood 2.3 g/dL (3.4-5.0); Anion Gap 5 mmol/L (6-16); Blood Urea Nitrogen 21 mg/dL (8-24); Bun/Creatinine Ratio 25.7 (12.0-20.0); CO2, Blood 29 mmol/L (21-32); Calcium, Blood 8.4 mg/dL (8.5-10.1); Chloride, Blood 110 mmol/L (98-108); Creatinine, Blood 0.82 mg/dL (0.60-1.20); Glomerular Filtration Rate >60 (60-); Glucose, Blood 115 mg/dL (70-99); Potassium, Blood 3.3 mmol/L (3.5-5.5); Sodium, Blood 144 mmol/L (136-145)
--- NOTE | 2019-07-14 06:16 | NUR ---
ROSS FURNACE OPERATOR SUMMARY PT AAOX4 AND PLEASANT. CALLS APPROPRIATELY FOR ASSISTANCE. PT HAS HAD SEVERAL SMALL WATERY STOOLS TONIGHT WITH SOME SMALL SOLID BITS. PT DENIES ABD PAIN BUT DID REQUEST PAIN MEDS FOR CHRONIC BACK AND L HIP PAIN. GIVEN TORADOL PER EMAR. HEPARIN DRIP INFUSING, DOSE DECREASED THIS AM PER PHARMACY RECOMMENDATIONS. CLINIMIX STOPPED AT THIS TIME PER DR RAYMOND PT'S IV HAD GONE BAD AND PT REQUESTED TO NOT HAVE ANOTHER PLACED IF POSSIBLE. CBG'S HAVE BEEN GOOD AND PT TO START ON CLEAR LIQUID DIET THIS AM. SBP 120'S AFTER MIDNIGHT DOSE OF HYDRALAZINE. VSS, WILL CONTINUE TO MONITOR.
--- NOTE | 2019-07-14 12:18 | NUR ---
SPOKE WITH DR. DUNN ABOUT POOR TOLERANCE OF CLEAR LIQUID DIET AT BREAKFAST. PATIENT VERY DISTENDED AFTER HAVING SMALL AMOUNT OF CLEAR LIQUIDS. DENIES ANY NAUSEA. BLADDER SCANNED FOR 436ML'S AND 500 ML'S DRAINED VIA STRAIGHT CATH. DR. DUNN ADVISED TO KEEP PATIENT NPO AND CONTACT DR BELLO. MESSAGE LEFT AT DR. BELLO'S OFFICE.
--- NOTE | 2019-07-14 18:08 | NUR ---
PATIENT A/OX4, TURNING Q2 HOURS. L AKA, W/C BOUND AT BASELINE. STARTED ON CLEAR LIQUIDS THIS AM, ABDOMEN BECAME VERY DISTENDED AFTER MEAL. REPEAT ABD X-RAY SHOWED NO BOWEL OBSTRUCTION. PATIENT DENIES ANY NAUSEA. 1 MED BROWN LIQUID STOOL THIS SHIFT. SKIN INTACT. CONTINUES ON HEPARIN GTT, NEXT PTT AT 2000. VSS, ON RA TODAY, CPAP WHILE ASLEEP. SWITCHED TO PO MEDS. STRAIGHT CATHED X1 THIS SHIFT FOR 500ML, RESTARTED ON PROSCAR. PATIENT IS CALM AND COOPERATIVE WITH CARE. AT BEDSIDE FOR MOST OF THIS SHIFT. PATIENT ABLE TO CALL APPROPRIATELY FOR ASSISTANCE.
--- NOTE | 2019-07-15 18:42 | NUR ---
PATIENT A/OX4, UP WITH 1 ASSIST PIVOT TX TO CHAIR. PT/OT ORDERED TODAY. TORADOL GIVEN X1 FOR BACK/L HIP PAIN WITH STATED RELIEF. TOLERATING FL DIET. VOIDING IN URINAL. TAKES PILLS WHOLE WITH WATER. PLAN IS TO D/C HOME TOMORROW WITH . PATIENT AND DID STATE THAT THEY FEEL MORE CAREGIVER HOURS WOULD BE HELPFUL UNTIL PATIENT IS STRONGER.
[2019-07-16 05:41] LABS: BASOPHILS ABSOLUTE AUTO 0.02 K/mm3 (0.00-0.23); BASOPHILS PERCENT AUTO 1 % (0-2); EOSINOPHILS ABSOLUTE AUTO 0.12 K/mm3 (0.00-0.68); EOSINOPHILS PERCENT AUTO 4 % (0-6); Hematocrit 32.9 % (37.0-53.0); Hemoglobin 10.1 g/dL (13.5-17.5); IMMATURE GRAN ABSOLUTE AUTO 0.03 K/mm3 (0.00-0.10); IMMATURE GRAN PERCENT AUTO 1 % (0-1); LYMPHOCYTES ABSOLUTE AUTO 1.17 K/mm3 (0.84-5.20); LYMPHOCYTES PERCENT AUTO 40 % (21-46); MONOCYTES ABSOLUTE AUTO 0.27 K/mm3 (0.16-1.47); MONOCYTES PERCENT AUTO 9 % (4-13); Mean Corpuscular HGB 28.8 pg (26.0-34.0); Mean Corpuscular HGB Conc 30.7 g/dL (31.5-36.5); Mean Platelet Volume 10.4 fL (9.1-12.4); NEUTROPHILS ABSOLUTE AUTO 1.31 K/mm3 (1.96-9.15); NEUTROPHILS PERCENT AUTO 45 % (41-73); Platelet Count 138 K/mm3 (150-400); RDW Coefficient Variation 14.3 % (11.7-14.2); Red Blood Cell Count 3.51 M/mm3 (4.30-5.90); White Blood Cell Count 2.92 K/mm3 (4.00-11.30)
--- NOTE | 2019-07-16 05:51 | NUR ---
SLEPT WELL. NO COMPLAINTS OF DISCOMFORT, VOIDING CLEAR YELLOW URINE IN URINAL. PASSING GAS, BUT NO MORE STOOL OVERNIGHT. PATIENT ANTICIPATING DISCHARGE TODAY. NO COUGHING DURING SHIFT
[2019-07-16 05:53] LABS: Mean Corpuscular Volume 94 fL (80-100)
[2019-07-16 05:56] LABS: Albumin, Blood 2.3 g/dL (3.4-5.0); Anion Gap 6 mmol/L (6-16); Blood Urea Nitrogen 14 mg/dL (8-24); Bun/Creatinine Ratio 15.8 (12.0-20.0); CO2, Blood 28 mmol/L (21-32); Calcium, Blood 8.1 mg/dL (8.5-10.1); Chloride, Blood 110 mmol/L (98-108); Creatinine, Blood 0.89 mg/dL (0.60-1.20); Glomerular Filtration Rate >60 (60-); Glucose, Blood 90 mg/dL (70-99); Phosphorus, Blood 3.8 mg/dL (2.5-4.9); Potassium, Blood 3.4 mmol/L (3.5-5.5); Sodium, Blood 144 mmol/L (136-145)
--- NOTE | 2019-07-16 18:28 | NUR ---
SHIFT SUMMARY- PT ALERT AND ORIENTED 1PA WITH ALL TRANSFERS. PT HAS A LEFT AKA R/T A DVT. HEPARIN DRIP WAS DC'D EARLY TODAY PT HAS SCD ON THE RLE. PLAN IS FOR PT TO DISCHARGE TOMORROW HOME WITH HOME HEALTH TRANSPORT PLANNED AT 1230. SPOUSE IS AWARE. PT STILL PACED ON TELE AT 60 THIS EVENING AND SBP WAS 105 WITH ORDER TO HOLD CARVEDILOL FOR SBP BELOW 105. SPOKE TO DR DUNN, OK TO HOLD THIS EVENINGS DOSE OF CARVEDILOL. LAST BG WAS 93, NO INSULIN COVERAGE NEEDED T/O THE SHIFT.
--- NOTE | 2019-07-17 04:18 | NUR ---
ELECTRONICS MECHANIC SUMMARY PT A/O X4. SLEPT WELL TONIGHT. DENIES PAIN, NAUSEA, DIZZINESS. NO ACUTE CHANGES. WAITING DISCHARGE.
[2019-07-17] MEDS ORDERED: Refresh Eye Dr1 EACH BOTHEYES (11:02)
--- NOTE | 2019-07-17 15:45 | NUR ---
DISCHARGE NOTE- PT WAS DISCHARGED HOME WITH HOME HEALTH. IV AND TELE DC'D PRIOR TO DISCHARGE. PT WAS GIVEN VERBAL AND WRITTEN DISCHARGE INSTRUCTIONS AND ACKNOWLEDGED UNDERSTANDING OF THEM. PT HAD NO FURTHER QUESTIONS AT THE TIME OF DISCHARGE.
== END 2019-07-17 12:27 | disposition home health service (06) | DRG 389 ==
LOC: ER 07:20 → MEDS 11:05 → ENPENDDIS 07-17 09:30 → MEDS 07-17 12:27
PROVIDERS: Emergency Medicine; Family Medicine; Nurse Practitioner Acute Care; ADMIT Internal Medicine
DX: K56.600 Partial intestinal obstruction, unspecified as to cause (principal); J96.11 Chronic respiratory failure with hypoxia; E87.0 Hyperosmolality and hypernatremia; R33.9 Retention of urine, unspecified; J44.9 Chronic obstructive pulmonary disease, unspecified; I73.9 Peripheral vascular disease, unspecified; Z95.1 Presence of aortocoronary bypass graft; Z95.0 Presence of cardiac pacemaker; Z86.718 Personal history of other venous thrombosis and embolism; I25.10 Atherosclerotic heart disease of native coronary artery without angina pectoris; Z89.612 Acquired absence of left leg above knee; Z99.81 Dependence on supplemental oxygen; G47.33 Obstructive sleep apnea (adult) (pediatric); M10.9 Gout, unspecified; E87.5 Hyperkalemia; K21.9 Gastro-esophageal reflux disease without esophagitis; E87.6 Hypokalemia; D72.819 Decreased white blood cell count, unspecified
CPT/HCPCS: 36415; 51701; 51798; 71045; 74018; 74019; 74022; 74176; 74250; 80048; 80053; 80069; 81001; 82947; 83605; 83735; 85025; 85610; 85730; 87081; 87086; 94640; 94762; 96374-59; 96375-59; 97110; 97116; 97162; 97166; 97530; 97535; 99285-25; C9113; J0360; J0780; J1170; J1644; J1885; J2405; J3010; J3480; J7030; J7070; J7120; Q9963

== ENCOUNTER → 2020-03-28 | Outpatient (CLI) | payer MEDICARE, OTHER ==
[~2020-03-28] MED LIST changes: +NOVOLOG100 UNIT/1 SC; +ROSU10TA PO; +Refresh Eye Dr1 EACH BOTHEYES
[2020-03-28 20:13] LABS: Percent Saturation 24.5 % (20.0-50.0)
== END | disposition home or self-care (01) ==
LOC: LAB SHORT 17:44 → LAB 17:44
PROVIDERS: Internal Medicine Hematology & Oncology
DX: D50.0 Iron deficiency anemia secondary to blood loss (chronic) (principal)
CPT/HCPCS: 82728; 83540; 83550

== ENCOUNTER 2020-06-20 09:51 | Day surgery (SDC) | payer MEDICARE, OTHER ==
[~2020-06-20] VITALS: Ht 175.3 cm; Wt 78.0 kg
[~2020-06-20 09:51] MED LIST changes: -ALBU2.5V5 NEB; -CARV6.25; -Calcium + Vita1 EACH PO; -FINA5 PO; -MIRALAX17 GM PO; -Multiple Vitam1 EAC1 PO; -Pulmicort Fle180 MCG INH; -ROSU10TA PO; -TAMS.4ER PO; -XARELTO15 MG PO
[2020-06-20] MEDS ORDERED: HYDMOR2 PO (10:56)
--- NOTE | 2020-06-20 16:22 | NUR ---
PATIENT RETURNED FROM THE [facility] TO RECOVERY. REPORT RECEIEVED FROM SUJEY CHENG. DR. MORTENSEN AT THE BEDSIDE AND SPOKE TO THE . TWO TR BANDS IN PLACE TO THE LEFT RADIAL. PLETH INADEQUATE AND AIR REMOVED FROM BOTH TR BANDS UNTIL PLETH READING ADEQUATE. THE TR BAND #1 HAD 12 ML OF AIR IN THE BAND AND RELEASED 2 ML TO 10 ML OF AIR. THE TR BAND #2 HAD 15 ML OF AIR IN THE BAND AND 5 ML RELEASED TO 10 ML OF AIR LEFT IN THE BAND. AT THE BEDSIDE. RIGHT PEDAL ACCESS WITH JULIO PLACE AND DOPPLER PULSES NOTED.
--- NOTE | 2020-06-20 17:25 | NUR ---
PATIENT ASSISTED TO SITTING POSITION AND USED THE URINAL WHILE STANDING. ASSISTED WITH DRESSING PARTIALLY, PANTS, UNDERWEAR AND SOCK SHOE ON . ATTEMPTED TO TAKE 2ND TR BAND OFF AND HEMATOMA REDEVELOPED. TR BAND REPLACED AND 5 ML OF AIR PLACED IN THE SECOND TR BAND. THE 1ST TR BAND IS STILL IN PLACE AND HAS 10 ML OF AIR IN THE BAND.
--- NOTE | 2020-06-20 18:35 | NUR ---
ATTEMPTING TO TAKE OFF THE ORIGINAL TR BAND AND HEMATOMA DEVELOPING. MANUAL PRESSURE HELD. SKIN IS TIGHT AND TAUNT. REAPPLIED TR BAND # 1 AND #2 WITH 10 ML OF AIR EACH IN THE BAND. NOTIFIED DR. MORTENSEN OF REBLEED AND CONTINUED HEMATOMA. AWAITING DR. MORTENSEN TO RETURN TO THE BEDSIDE FOR EVALUATION. DISCHARGE ON HOLD FOR NOW.
--- NOTE | 2020-06-20 18:57 | NUR ---
DR. MORTENSEN AT THE BEDSIDE. EVALUATED PATIENT AND DECISION TO KEEP OVERNIGHT FOR OBSERVATION. TR BAND X [address] TO THE LEFT RADIAL FOR REBLEED AND HEMATOMA.
--- NOTE | 2020-06-20 19:20 | NUR ---
PCU #5 BED OBTAINED FOR OBSERVATION AND CONTINUED CARE FOR REBLEED OF LEFT RADIAL SITE. NOTIFIED DR. MORTENSEN FOR ORDERS. LEFT TO GO HOME AND WILL CALL AND UPDATE HER ON PATIENTS LOCATION.
[2020-06-20] MEDS ORDERED: ZYRTEC10 M2 PO (20:54)
[2020-06-20] MEDS ORDERED: MIRALAX17 GM PO (20:56)
[2020-06-20] MEDS ORDERED: CAL-CITRATE PL1 EAC1 PO (20:57)
[2020-06-20] MEDS ORDERED: POTA10T PO (20:57)
[2020-06-20] MEDS ORDERED: XARELTO20 MG PO (20:59)
[2020-06-20] MEDS ORDERED: CARV3.125 PO (20:59)
[2020-06-20] MEDS ORDERED: FURO20 PO (21:00)
[2020-06-20] MEDS ORDERED: BUPROPION XL150 M1 PO (21:02)
[2020-06-20] MEDS ORDERED: Crestor40 MG PO (21:03)
[2020-06-20] MEDS ORDERED: FLUTICASONE PRO16 GM (21:04)
[2020-06-20] MEDS ORDERED: STIOLTO RESPIMAT4 G1 INH (21:06)
[2020-06-20] MEDS ORDERED: Pulmicort Fle180 MCG INH (21:07)
[2020-06-20] MEDS ORDERED: ALLO300 PO (21:29)
[2020-06-20] MEDS ORDERED: GABAPENTIN600 MG PO (21:30)
[2020-06-20] MEDS ORDERED: FINA5 PO (21:30)
[2020-06-20] MEDS ORDERED: TAMS.4ER PO (21:32)
[2020-06-20] MEDS ORDERED: Methocarbamol500 MG PO (21:32)
[2020-06-20] MEDS ORDERED: TRAM50 PO (21:36)
[2020-06-20] MEDS ORDERED: Multiple Vitam1 EAC1 PO (21:36)
[2020-06-20] MEDS ORDERED: FAMO40 PO (21:41)
[2020-06-20] MEDS ORDERED: ALBU90OI INH (21:41)
[2020-06-20] MEDS ORDERED: LOSA25 PO (21:42)
[2020-06-20] MEDS ORDERED: METAMUCIL POWD575 GM PO (22:12)
[2020-06-20] MEDS ORDERED: LACT PO (22:13)
[2020-06-20] MEDS ORDERED: GUAI200 PO (22:13)
[2020-06-20] MEDS ORDERED: IPRATROPIUM BRO30 ML (22:14)
--- NOTE | 2020-06-20 22:45 | NUR ---
PT UPDATE PT BROUGHT UP TO ROOM AT 1945. [facility] RN GAVE BEDSIDE REPORT TO RECEIVING RN. PT DISPLAYS LARGE HEMATOMA ON L FOREARM/HAND. TWO TR BANDS WERE IN PLACE - PROXIMAL BAND STATED TO HAVE 10ML IN, AND DISTAL BAND STATED TO HAVE 5ML IN. RN DOPPLERED L RADIAL PULSE - STRONG PULSES. RN DOPPLERED R PEDAL PULSE - STRONG PULSES. FINGERS AND TOES HAVE GOOD COLOR AND ARE WARM TO TOUCH. ORDERED TO START DEFLATION AT 2100, BUT BP WAS READING 211/76, RN HESISTANT TO START DEFLATION WITH HIGH BP. NIGHTITME BP MEDS GIVEN - CALLED [facility] TO UPDATE STATUS OF HEMATOMA, AND ASKED FOR PRN MEDS SHOULD BP CONTINUE TO RISE. ORDERED PRN BP MEDS, MD AWARE OF HEMATOMA AND AGREES WITH SLOW DEFLATION OF TR BANDS. AT 2130, RN REMOVED 2ML FROM TR BAND - BP IMPROVING. NO SIGNS OF FURTHER BLEEDING/WORSENING HEMATOMA FORMATION. AT 2240 - BP IMPROVED TO 169/71, AND RN REMOVED 3ML FROM TR BAND - COMPLETING THE MOST DISTAL BAND FIRST. WILL LEAVE BAND IN PLACE FOR 1 HOUR BEFORE REMOVAL ENTIRELY. ONCE TR BAND IS REMOVED, WILL START DEFLATING REMAINING PROXIMAL TR BAND. CURRENTLY, VSS. NO C/O PAIN. NO FURTHER COMPLICATIONS AT THIS TIME. L ARM IS ELEVATED WITH PILLOWS. PT IS ALERT AND ORIENTED, ABLE TO MAKE NEEDS KNOWN. WILL CONTINUE TO MONITOR.
--- NOTE | 2020-06-21 06:06 | NUR ---
SHIFT SUMMARY PT RESTED SOME THROUGH NIGHT. RN TO ROOM FOR FREQUENT VITALS/TR BAND MANAGEMENT - SEE PREVIOUS NOTE REGARDING TR BAND. PT ALERT AND ORIENTED - ABLE TO MAKE NEEDS KNOWN. WEARS CPAP AT NIGHT WITH 2L BLEED IN. PT ON ROOM AIR WHEN AWAKE, BUT WILL USE 2L SUPPLEMENTAL O2 IF PT FEELS NECESSARY. TELE PLACED ON PT - NSR. ABLE TO PIVOT SELF TO EDGE OF BED TO STAND TO USE URINAL - 2 PERSON ASSIST TO STAND/HOLD URINAL. VOIDED X2 TO URINAL. NO BM. DRESSING ON R PEDAL CHANGED TO TEGADERM, AND L RADIAL SITE DRESSING CHANGED TO TEGADERM. NO C/O PAIN. VSS. CALL LIGHT WITHIN REACH, BED IN LOWEST POSITION, WILL CONTINUE TO MONITOR.
--- NOTE | 2020-06-21 12:11 | NUR ---
LT RADIAL SITE IS WELL RECOVERED, SWELLING IS MINIMAL, BRUISING NOTED FROM HAND TO JUST BELOW ELBOW. SKIN IS SOFT, NONPAINFUL, HAS BEEN ICE PACKED SO SKIN IS COOL TO TOUCH. TEGADERM INTACT TO LT RADIAL SITE, NO ACTIVE BLEEDING NOTED. ARM BOARD IS APPLIED AND PT IS THOROUGHLY EDUCATED ABOUT ARM BOARD USE AND RADIAL SITE CARE. PT SITTING UP AT BEDSIDE EATING LUNCH TRAY
== END 2020-06-21 12:25 | disposition home or self-care (01) ==
LOC: MHTC 09:51 → PCU 19:46 → MHTC 19:46 → PCU 20:00 → MHTC 06-21 12:25 → PCU 06-21 12:25
DX: E11.51 Type 2 diabetes mellitus with diabetic peripheral angiopathy without gangrene (principal); I70.211 Atherosclerosis of native arteries of extremities with intermittent claudication, right leg; J44.9 Chronic obstructive pulmonary disease, unspecified; I25.10 Atherosclerotic heart disease of native coronary artery without angina pectoris; H91.90 Unspecified hearing loss, unspecified ear; N40.0 Benign prostatic hyperplasia without lower urinary tract symptoms; I10 Essential (primary) hypertension; M10.9 Gout, unspecified; G47.33 Obstructive sleep apnea (adult) (pediatric); K21.9 Gastro-esophageal reflux disease without esophagitis; E55.9 Vitamin D deficiency, unspecified; Z88.5 Allergy status to narcotic agent; Z88.8 Allergy status to other drugs, medicaments and biological substances; Z91.018 Allergy to other foods; Z79.4 Long term (current) use of insulin; Z79.01 Long term (current) use of anticoagulants; Z79.899 Other long term (current) drug therapy; Z87.891 Personal history of nicotine dependence; Z86.718 Personal history of other venous thrombosis and embolism; Z20.828 Contact with and (suspected) exposure to other viral communicable diseases; Z95.0 Presence of cardiac pacemaker; Z89.612 Acquired absence of left leg above knee
CPT/HCPCS: 37224; 37229; 75625; 75716; 75774; 76937; 82947; 94640; 94660; 94762; 99152; 99153; A9270-GY; C1714; C1725; C1757; C1769; C1887; C1894; C2623; C9764; J1200; J1644; J2250; J3010; J7030; J7050; Q9967

== ENCOUNTER 2020-08-05 15:13 | Emergency (ER) | payer MEDICARE, OTHER ==
[~2020-08-05] VITALS: Ht 175.3 cm; Wt 72.6 kg
[~2020-08-05 15:13] MED LIST changes: +BUPROPION XL150 M1 PO; +CAL-CITRATE PL1 EAC1 PO; +CARV3.125 PO; +Crestor40 MG PO; +FAMO40 PO; +FINA5 PO; +FLUTICASONE PRO16 GM; +GABAPENTIN600 MG PO; +GUAI200 PO; +IPRATROPIUM BRO30 ML; +LACT PO; +METAMUCIL POWD575 GM PO; +MIRALAX17 GM PO; +Methocarbamol500 MG PO; +Multiple Vitam1 EAC1 PO; +POTA10T PO; +Pulmicort Fle180 MCG INH; +STIOLTO RESPIMAT4 G1 INH; +TAMS.4ER PO; +XARELTO20 MG PO; +ZYRTEC10 M2 PO
[2020-08-05 16:03] LABS: BASOPHILS ABSOLUTE AUTO 0.03 K/mm3 (0.00-0.23); BASOPHILS PERCENT AUTO 1 % (0-2); EOSINOPHILS ABSOLUTE AUTO 0.03 K/mm3 (0.00-0.68); EOSINOPHILS PERCENT AUTO 1 % (0-6); Hematocrit 43.9 % (37.0-53.0); IMMATURE GRAN PERCENT AUTO 0 % (0-1); LYMPHOCYTES ABSOLUTE AUTO 1.83 K/mm3 (0.84-5.20); LYMPHOCYTES PERCENT AUTO 37 % (21-46); MONOCYTES ABSOLUTE AUTO 0.44 K/mm3 (0.16-1.47); MONOCYTES PERCENT AUTO 9 % (4-13); Mean Corpuscular HGB 30.9 pg (26.0-34.0); Mean Corpuscular HGB Conc 31.9 g/dL (31.5-36.5); Mean Corpuscular Volume 97 fL (80-100); Mean Platelet Volume 9.9 fL (9.1-12.4); NEUTROPHILS ABSOLUTE AUTO 2.64 K/mm3 (1.96-9.15); NEUTROPHILS PERCENT AUTO 53 % (41-73); Platelet Count 111 K/mm3 (150-400); RDW Coefficient Variation 14.1 % (11.7-14.2); RDW Standard Deviation 50.6 fL (35.1-46.3); Red Blood Cell Count 4.53 M/mm3 (4.30-5.90); White Blood Cell Count 4.97 K/mm3 (4.00-11.30)
[2020-08-05 16:11] LABS: Alanine Aminotransfer (ALT/SGP 39 U/L (12-78); Albumin, Blood 3.3 g/dL (3.4-5.0); Albumin/Globulin Ratio 0.9 (0.8-1.8); Alk Phos 99 U/L (50-136); Anion Gap 6 mmol/L (6-16); Aspartate Aminotrans (AST/SGOT 25 U/L (12-37); Bilirubin, Total 1.5 mg/dL (0.1-1.0); Blood Urea Nitrogen 21 mg/dL (8-24); Bun/Creatinine Ratio 18.9 (12.0-20.0); CO2, Blood 28 mmol/L (21-32); Calcium, Blood 8.7 mg/dL (8.5-10.1); Chloride, Blood 109 mmol/L (98-108); Creatinine, Blood 1.11 mg/dL (0.60-1.20); Globulin, Blood 3.6 g/dL (2.2-4.0); Glomerular Filtration Rate >60 (60-); Glucose, Blood 109 mg/dL (70-99); Potassium, Blood 3.7 mmol/L (3.5-5.5); Sodium, Blood 143 mmol/L (136-145); Total Protein, Blood 6.9 g/dL (6.4-8.2); Troponin I <0.015 ng/mL (0.000-0.040)
[2021-01-16] MEDS ORDERED: ACIDOPHILUS1 EAC3 (09:03)
[2021-01-16] MEDS ORDERED: ERGO400 (09:06)
[2021-01-16] MEDS ORDERED: HYDPAM50 (09:06)
[2021-01-16] MEDS ORDERED: Actos15 MG (09:06)
== END 2020-08-05 18:12 | disposition home or self-care (01) ==
LOC: ER 15:13
PROVIDERS: Physician Assistant
DX: I25.810 Atherosclerosis of coronary artery bypass graft(s) without angina pectoris (principal); I10 Essential (primary) hypertension; E78.5 Hyperlipidemia, unspecified; E11.9 Type 2 diabetes mellitus without complications; Z88.5 Allergy status to narcotic agent; Z88.8 Allergy status to other drugs, medicaments and biological substances; Z79.84 Long term (current) use of oral hypoglycemic drugs; Z79.01 Long term (current) use of anticoagulants; Z79.51 Long term (current) use of inhaled steroids; Z79.899 Other long term (current) drug therapy; Z95.1 Presence of aortocoronary bypass graft; Z95.0 Presence of cardiac pacemaker
CPT/HCPCS: 36415; 71046; 80053; 84484; 85025; 93005; 93010; 99285-25

== ENCOUNTER 2020-10-26 09:51 | Day surgery (SDC) | payer MEDICARE, OTHER ==
[~2020-10-26] VITALS: Ht 175.3 cm; Wt 72.6 kg
--- NOTE | 2020-10-26 18:34 | NUR ---
PT TO ICU 12 FROM [facility]. PT ALERT AND ORIENTED, NO COMPLAINTS OF PAIN AT THIS TIME. 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 CLEAR DRESSINGS TO LEFT RADIAL, RIGHT POPLITEAL, RIGHT TIBIAL, RIGHT DORSAL PEDIS FROM ACCESS ATTEMPTS, ALL SITES WNL-NO HEMATOMA/BLEEDING/PAIN WITH PALPATION. PT REMINDED TO KEEP RIGHT LEG STRAIGHT PER PHYSICIAN ORDER. PT'S AT BEDSIDE, UPDATED WITH PT STATUS, REVIEWED VISITING HOUR HOSPITAL POLICY FOR TOMORROW. PT'S BROUGHT PT'S HOME CPAP MACHINE, AT BEDSIDE. VSS AT THIS TIME. WILL REPORT OFF TO ONCOMING NURSE.
--- NOTE | 2020-10-27 05:02 | NUR ---
SHIFT SUMMARY PATIENT IS ALERT AND ORIENTED. INDEPENDENT WITH REPOSTIONING IN BED, 1 PERSON ASSIST AT TIMES. 02 SATS >93% ON RA, PATIENT WORE HOME CPAP WHILE SLEEPING. ALL SURGICAL ACCESS SITES C/D/I. LEFT UPPER EXTREMITY WARM, PINK, CAP REFILL <3 SECONDS. RLE COOL, PINK, PULSE FOUND WITH DOPPLER, PATIENT STATES NUMBNESS FROM HIS ANKLE TO HIS TOES, NOW AND AT BASELINE. PATIENT COMPLAINED OF BLADDER PAIN AND UNABLE TO URINATE, CALLED HOSPITALIST, BLADDER SCAN 699, STRAIGHT CATH DONE WITH 725 OUT. PATIENT SLEPT MOST THE NIGHT, NO COMPLAINTS OF PAIN. VSS, NO ACUTE CHANGES. CALL LIGHT IN REACH.
--- NOTE | 2020-10-27 08:00 | NUR ---
INITIAL ASSESSMENT PATIENT ALERT AND ORIENTED X 4, TETLIN. AFEBRILE. L AKA NOTED. PATIENT DENIES PAIN. PATIENT SATTING 90% AND GREATER ON RA WHILE AWAKE AND ON HOME CPAP AT NIGHT. LUNGS CLEAR IN UPPER LOBES AND DIMINISHED IN LOWER LOBES. PATIENT HAS BBB; OCCASIONALLY PACED. HR IN THE 60S, SBP IN THE 160S. GI WNL. NIGHT RN REPORTED THAT PATIENT HAD TO BE STRAIGHT CATHED ON GLOBAL CHIEF CREATIVE OFFICER. PATIENT STATED HE COULD NOT URINATE WITH URINAL WITHOUT STANDING UP AND AT THE TIME PATIENT WAS ON ACTIVITY RESTRICTIONS AFTER LIFE INSURANCE UNDERWRITER. PATIENT IS RECEIVING SCHEDULED LASIX. PATIENT HAS LIFE INSURANCE UNDERWRITER ACCESS SITES AT L RADIAL, R FEMORAL, R DP, R PD. ALL SITES WNL, TEGADERM DRESSINGS C/D/I, NO BLEEDING, BRUISING, OR HEMATOMA NOTED. IV FLUSHED AND SALINE LOCKED. BED LOW, CALL LIGHT IN REACH. WILL CONTINUE TO MONITOR FREQUENTLY THROUGHOUT SHIFT.
--- NOTE | 2020-10-27 09:00 | NUR ---
PATIENT TRANSFERRED SELF TO CHAIR FROM BED WITHOUT DIFFICULTY. PATIENTS STATES HE FEELS GOOD. PATIENT OCCASIONALLY STANDING UP AND LEANING ON TABLE TO STRETCH LEGS. LUMBER TAILER SITES CONTINUALLY BEING CHECKED AND REMAIN UNCHANGED.
--- NOTE | 2020-10-27 13:10 | NUR ---
SHIFT SUMMARY/ DISCHARGE PATIENT REMAINED ALERT AND ORIENTED X 4. AFEBRILE. PATIENT HAD NO COMPLAINTS OF PAIN DURING SHIFT. PATIENT IN GOOD SPIRITS, PLEASANT AND COOPERATIVE. PATIENT REMAINED SATTING 90% AND GREATER ON RA. PATIENT REMAINED WITH BBB AND OCCASIONALLY PACED. HR 60S TO 70S AND SBP REMAINED IN THE 160S. NO BM THIS SHIFT. PATIENT HAD GOOD APPETITE. PATIENT VOIDED 350 MLS OF YELLOW URINE WITH NO DIFFICULTY THIS SHIFT. NO CHANGES TO SKIN. ALL 4 CHEMICAL PROCESS ANALYST SITES REMAINED WNL, WITH NO BLEEDING, BRUISING, OR HEMATOMA NOTED. L AC IV REMOVED. PATIENT'S CAME TO PICK PATIENT UP. INFORMATION GIVEN TO PATIENT ON HOW TO CARE FOR CHEMICAL PROCESS ANALYST ACCESS SITES. ALL BELONGINGS SENT HOME WITH PATIENT. PATIENT DISCHARGE COMPLETE.
== END 2020-10-27 13:15 | disposition home or self-care (01) ==
LOC: MHTC 09:51 → ICUW 18:15 → MHTC 10-27 13:15
DX: I70.213 Atherosclerosis of native arteries of extremities with intermittent claudication, bilateral legs (principal); I87.2 Venous insufficiency (chronic) (peripheral); L97.511 Non-pressure chronic ulcer of other part of right foot limited to breakdown of skin; I99.8 Other disorder of circulatory system; J44.9 Chronic obstructive pulmonary disease, unspecified; I25.10 Atherosclerotic heart disease of native coronary artery without angina pectoris; E11.51 Type 2 diabetes mellitus with diabetic peripheral angiopathy without gangrene; K21.9 Gastro-esophageal reflux disease without esophagitis; G47.33 Obstructive sleep apnea (adult) (pediatric); I82.819 Embolism and thrombosis of superficial veins of unspecified lower extremity; Z87.891 Personal history of nicotine dependence; Z79.84 Long term (current) use of oral hypoglycemic drugs; Z79.01 Long term (current) use of anticoagulants
CPT/HCPCS: 51702; 76937; 85347; 94640; 99152; 99153; A9270; A9270-GY; C1725; C1769; C1887; C1894; J0360; J1644; J2250; J3010; J7030; J7050; Q9967

== ENCOUNTER → 2021-01-25 | Outpatient (CLI) | payer MEDICARE, OTHER ==
[~2021-01-25] MED LIST changes: +ACIDOPHILUS1 EAC3; +Actos15 MG; +ERGO400; +HYDPAM50
[2021-01-25 16:22] LABS: Bun/Creatinine Ratio 10.5 (12.0-20.0); Calcium, Blood 8.6 mg/dL (8.5-10.1); Creatinine, Blood 1.43 mg/dL (0.60-1.20); Potassium, Blood 3.9 mmol/L (3.5-5.5)
== END ==
LOC: LAB SHORT 14:00
DX: Z01.812 Encounter for preprocedural laboratory examination (principal)
CPT/HCPCS: 36415; 80048

== ENCOUNTER 2021-02-05 07:43 | Day surgery (SDC) | payer OTHER ==
[~2021-02-05] VITALS: Ht 175.3 cm; Wt 72.7 kg
[~2021-02-05 07:43] MED LIST changes: -Actos15 MG; +Actos15 MG PO
[2021-02-05] MEDS ORDERED: METO25ER PO (08:28)
[2021-03-13] MEDS ORDERED: FAMO20 PO (16:20)
[2021-03-13] MEDS ORDERED: GUAI600T33 PO (16:20)
[2021-03-13] MEDS ORDERED: AMITIZA24 MC1 PO (16:21)
[2021-03-13] MEDS ORDERED: LOSA25 PO (16:21)
[2021-03-13] MEDS ORDERED: OMEP20ER PO (16:22)
[2021-03-13] MEDS ORDERED: MOVANTIK12.5 MG PO (16:22)
== END 2021-02-05 09:45 | disposition home or self-care (01) ==
LOC: ORSCSDS 07:43
PROVIDERS: Internal Medicine Gastroenterology
PROC: 0DB68ZX Excision of Stomach, Via Natural or Artificial Opening Endoscopic, Diagnostic (ICD-10-PCS; principal; 2021-02-05 09:15)
DX: R10.13 Epigastric pain (principal); K20.90 Esophagitis, unspecified without bleeding; I10 Essential (primary) hypertension; Z95.0 Presence of cardiac pacemaker; I25.10 Atherosclerotic heart disease of native coronary artery without angina pectoris; K21.9 Gastro-esophageal reflux disease without esophagitis; J44.9 Chronic obstructive pulmonary disease, unspecified; N18.9 Chronic kidney disease, unspecified; E11.9 Type 2 diabetes mellitus without complications; Z79.899 Other long term (current) drug therapy
CPT/HCPCS: 82947; 88305; 88342; 93005; 93010; J2405; J2704; J7120

== ENCOUNTER 2021-03-14 07:02 | Day surgery (SDC) | payer OTHER ==
[~2021-03-14] VITALS: Ht 175.3 cm; Wt 72.0 kg
[~2021-03-14 07:02] MED LIST changes: +AMITIZA24 MC1 PO; +FAMO20 PO; +MOVANTIK12.5 MG PO; +OMEP20ER PO
--- NOTE | 2021-03-14 10:05 | NUR ---
PT TO RECOVERY ROOM POST PROCEDURE. PT DROWSY, BUT CONVERSING APPROPRIATELY; DENIES PAIN POST PROCEDURE. MONITOR A PACED 60, B/P 157/69, AFEBRILE, SPO2 94% RA. R DP SITE NO SWELLING/HEMATOMA, JULIO AND TEGADERM DRSG INTACT; RLE PULSES 1+ DP AND DOP PT.
--- NOTE | 2021-03-14 11:05 | NUR ---
PT HOB ELEVATED, SITE UNCHANGED; TOLERATED LUNCH WITHOUT ISSUE.
--- NOTE | 2021-03-14 11:50 | NUR ---
PT DRESSED WITH MIN ASSISTANCE, SITE UNCHANGED, GAIT STEADY; IV REMOVED, CANNULA INTACT.
--- NOTE | 2021-03-14 11:55 | NUR ---
PT AND RECEIVED DISCHARGE INSTRUCTIONS, MED LIST AND AFTER CARE INSTRUCTIONS; VERBALIZED GOOD UNDERSTANDING.
--- NOTE | 2021-03-14 11:59 | NUR ---
PT LEFT FACILITY VIA W/C, CONDITION STABLE.
== END 2021-03-14 11:59 | disposition home or self-care (01) ==
LOC: MHTC 07:02
PROC: 04CM3ZZ Extirpation of Matter from Right Popliteal Artery, Percutaneous Approach (ICD-10-PCS; principal; 2021-03-14)
PROC: 047M3ZZ Dilation of Right Popliteal Artery, Percutaneous Approach (ICD-10-PCS; principal; 2021-03-14)
DX: E11.51 Type 2 diabetes mellitus with diabetic peripheral angiopathy without gangrene (principal); I70.213 Atherosclerosis of native arteries of extremities with intermittent claudication, bilateral legs; I25.10 Atherosclerotic heart disease of native coronary artery without angina pectoris; J44.9 Chronic obstructive pulmonary disease, unspecified; G47.33 Obstructive sleep apnea (adult) (pediatric); N40.0 Benign prostatic hyperplasia without lower urinary tract symptoms; M10.9 Gout, unspecified; Z95.0 Presence of cardiac pacemaker; Z89.612 Acquired absence of left leg above knee; Z79.01 Long term (current) use of anticoagulants; Z79.899 Other long term (current) drug therapy; Z95.1 Presence of aortocoronary bypass graft; Z86.718 Personal history of other venous thrombosis and embolism; Z87.891 Personal history of nicotine dependence; Z88.5 Allergy status to narcotic agent; Z88.8 Allergy status to other drugs, medicaments and biological substances
CPT/HCPCS: 76937; 99152; 99153; C1725; C1769; C1885; C1887; C1894; J2250; J3010; J7030; Q9967

== ENCOUNTER 2021-06-25 10:03 | Day surgery (SDC) | payer OTHER ==
[~2021-06-25] VITALS: Ht 175.3 cm; Wt 72.0 kg
--- NOTE | 2021-06-25 19:17 | NUR ---
PT UP AND DRESSED WITH ASSIST, BOTH PT AND GROIN SITE STABLE. SALINE LOCK REMOVED WITH CATHETER INTACT.
--- NOTE | 2021-06-25 19:23 | NUR ---
DISCHARGE REVIEWED WITH PT AND , BOTH VERBALIZE UNDERSTANDING OF INSTRUCTIONS. PT TO PRIVATE VEHICLE PER W/C WITH ONE STAFF.
== END 2021-06-25 19:30 | disposition home or self-care (01) ==
LOC: MHTC 10:03
DX: I70.213 Atherosclerosis of native arteries of extremities with intermittent claudication, bilateral legs (principal); J44.9 Chronic obstructive pulmonary disease, unspecified; I25.10 Atherosclerotic heart disease of native coronary artery without angina pectoris; Z88.5 Allergy status to narcotic agent; Z88.8 Allergy status to other drugs, medicaments and biological substances; Z20.822 Contact with and (suspected) exposure to COVID-19
CPT/HCPCS: 36140; 37224; 37228; 37232; 75710; 75774; 76937; 85347; 99152; 99153; C1725; C1760; C1769; C1887; C1894; C2623; J1644; J2250; J3010; J7030; J7050; Q9967

== ENCOUNTER 2021-08-14 13:19 | Observation (INO) | payer OTHER ==
[~2021-08-14] VITALS: Ht 177.8 cm; Wt 74.4 kg
[2021-08-14] MEDS ORDERED: ROPI.25 PO (15:57)
[2021-08-14] MEDS ORDERED: GUAI600T33 PO (15:57)
[2021-08-14] MEDS ORDERED: IPRATROPIUM BRO30 ML (15:58)
[2021-08-14] MEDS ORDERED: ROSUVASTATIN CA40 MG PO (15:59)
[2021-08-14 22:29] LABS: Influenza A, PCR NEGATIVE (NEGATIVE); Influenza B, PCR NEGATIVE (NEGATIVE); Resp Syncytial Virus, PCR NEGATIVE (NEGATIVE); SARS-Cov-2 (COVID-19) PCR, MMC NEGATIVE (NEGATIVE)
--- NOTE | 2021-08-15 04:32 | NUR ---
ALERT AND ORIENTED X'S 4. NO COMPLAINTS OF PAIN. SLEPT WELL THROUGH NIGHT. CPAP IN PLACE, TOLERATED WELL. SAFETY MAINTAINED, CALL OCONNOR IN REACH.
[2021-08-15 05:33] LABS: International Normalized Ratio 1.19; Prothrombin Time Results 12.4 Sec (9.7-11.5)
[2021-08-15 05:34] LABS: BASOPHILS ABSOLUTE AUTO 0.02 K/mm3 (0.00-0.23); BASOPHILS PERCENT AUTO 0 % (0-2); EOSINOPHILS ABSOLUTE AUTO 0.07 K/mm3 (0.00-0.68); EOSINOPHILS PERCENT AUTO 1 % (0-6); Hematocrit 37.7 % (37.0-53.0); Hemoglobin 11.3 g/dL (13.5-17.5); IMMATURE GRAN ABSOLUTE AUTO 0.01 K/mm3 (0.00-0.10); IMMATURE GRAN PERCENT AUTO 0 % (0-1); LYMPHOCYTES PERCENT AUTO 24 % (21-46); MONOCYTES ABSOLUTE AUTO 0.41 K/mm3 (0.16-1.47); MONOCYTES PERCENT AUTO 8 % (4-13); Mean Corpuscular HGB 27.5 pg (26.0-34.0); Mean Corpuscular Volume 92 fL (80-100); Mean Platelet Volume 10.4 fL (9.1-12.4); NEUTROPHILS ABSOLUTE AUTO 3.29 K/mm3 (1.96-9.15); NEUTROPHILS PERCENT AUTO 66 % (41-73); Platelet Count 170 K/mm3 (150-400); RDW Coefficient Variation 16.9 % (11.7-14.2); RDW Standard Deviation 57.3 fL (35.1-46.3); Red Blood Cell Count 4.11 M/mm3 (4.30-5.90)
[2021-08-15 05:51] LABS: Albumin, Blood 2.8 g/dL (3.4-5.0); Albumin/Globulin Ratio 0.8 (0.8-1.8); Bilirubin, Total 1.1 mg/dL (0.1-1.0); Calcium, Blood 8.3 mg/dL (8.5-10.1); Creatinine, Blood 1.4 mg/dL (0.60-1.20); Globulin, Blood 3.3 g/dL (2.2-4.0); Total Protein, Blood 6.1 g/dL (6.4-8.2)
--- NOTE | 2021-08-15 11:26 | NUR ---
Pt. was alert and in bed. Pt. welcomed my visit, and was a very pleasant personality. Developed rapport with pt. and identified common life connections. Pt. was mildly unsettled about the prognosis of his surgery. Normalized pt. expereience. Pt. displayed evidence of understanding particularly regarding addressing his normal dependance on blood thinners. Pt. shared about the importance of his yandy. Explored issues of yandy and belief. At one point a nurse came in and helped communicate expectations for the pt. Prayed with pt. Pt. verbalized gratitude for the care he is recieving, and for the spiritual care visit.
--- NOTE | 2021-08-15 18:59 | NUR ---
SUMMARY- PT A/O X4, USES URINAL, STANDS AT THE EDGE OF BED WITH 1SBA. PT HAS DECIDED WITH DR CANNON TO TREAT APPENDICITIS WITH ANTIBIOTIC TX VS SURGERY. STARTING ON CLEAR LIQ DIET THIS PM. PT HAS HAD NO PAIN OR NAUSEA. ABD TENDER TO TOUCH. HAD A BM THIS AM. AWARE OF PLAN.
[2021-08-16 04:43] LABS: BASOPHILS ABSOLUTE AUTO 0.02 K/mm3 (0.00-0.23); BASOPHILS PERCENT AUTO 0 % (0-2); EOSINOPHILS ABSOLUTE AUTO 0.05 K/mm3 (0.00-0.68); EOSINOPHILS PERCENT AUTO 1 % (0-6); Hematocrit 37.1 % (37.0-53.0); Hemoglobin 11.2 g/dL (13.5-17.5); IMMATURE GRAN ABSOLUTE AUTO 0.01 K/mm3 (0.00-0.10); IMMATURE GRAN PERCENT AUTO 0 % (0-1); LYMPHOCYTES ABSOLUTE AUTO 1.07 K/mm3 (0.84-5.20); LYMPHOCYTES PERCENT AUTO 22 % (21-46); MONOCYTES ABSOLUTE AUTO 0.43 K/mm3 (0.16-1.47); MONOCYTES PERCENT AUTO 9 % (4-13); Mean Corpuscular HGB 27.5 pg (26.0-34.0); Mean Corpuscular HGB Conc 30.2 g/dL (31.5-36.5); Mean Corpuscular Volume 91 fL (80-100); Mean Platelet Volume 9.4 fL (9.1-12.4); NEUTROPHILS ABSOLUTE AUTO 3.34 K/mm3 (1.96-9.15); NEUTROPHILS PERCENT AUTO 68 % (41-73); Platelet Count 148 K/mm3 (150-400); RDW Coefficient Variation 16.8 % (11.7-14.2); RDW Standard Deviation 56.7 fL (35.1-46.3); Red Blood Cell Count 4.07 M/mm3 (4.30-5.90); White Blood Cell Count 4.92 K/mm3 (4.00-11.30)
--- NOTE | 2021-08-16 04:43 | NUR ---
SLEPT WELL THROUGH NIGHT. ABDOMEN SLIGHT TENDER UPON PALPITAION OTHERWISE DENIES PAIN. ONE ASSIST TO STAND. VOIDS WITHOUT DIFFICULTY. TOLERATED CLEAR LIQUID DIET. SAFETY MAINTAINED, CALL OCONNOR IN REACH.
[2021-08-16 05:14] LABS: Calcium, Blood 8.2 mg/dL (8.5-10.1); Creatinine, Blood 1.34 mg/dL (0.60-1.20); Potassium, Blood 3.9 mmol/L (3.5-5.5)
--- NOTE | 2021-08-16 08:06 | NUR ---
CALL TO DR CANNON TO NOTIFY OF PT'S COMPLAINT OF INCREASED ABD DISTENTION AND NAUSEA AFTER MORNING MEDS. PT WAS VERY SOB AFTER ACTIVITY OF GETTING TO THE BSC AND BACK. HEARING FINE CRACKLES BIBASILAR AND R ANKLE EDEMA. WILL ALSO NOTIFY MEDICINE TO MARLY PT. HIGH BP RESOLVED S/P HYDRALAZINE 0504
--- NOTE | 2021-08-16 12:24 | NUR ---
Pt. is alert and sitting up in chair. Pt. is pleasant but is mildly unsettled about the delay in his procedure. Listen empathetically and normalized the pt. experience. Pt. displays evidence of understanding the nature of his diagnosis. Explore issues of yandy and belief. Pt. verbalizes his confidence in the doctors and staff, as well as his confidence in God. [place] with pt. Pt. verbalizes gratitude for both his physical and spiritual care.
--- NOTE | 2021-08-16 20:29 | NUR ---
SUMMARY- PT AWAITING TODAY TO SEE IF HIS APPENDICITIS S/S WOULD IMPROVE. HAS BEEN NPO. NO ABD PAIN OR NAUSEA, NO APPETITS, ABD TENDER L SIDE WITH PALP. VSS. CONT IV ABX AND IVF. VOIDING. BOWEL TONES NORMOACTIVE, SLIGHTLY DISTENDED.
--- NOTE | 2021-08-17 05:45 | NUR ---
PATIENT STATED ABDOMINAL PAIN APPEARS TO BE GETTING WORSE. MEDICATED WITH ULTRAM 50MG, PATIENT STATED PAIN WAS STILL THERE UPON PALPITATION, OTHERWISE HE FELT GOOD. R ABDOMEN DISTENDED, SOFT TO TOUCH. HAS SOME DIFFICULTY STARTING URINE STREAM BUT VOIDS APPROPRIATE AMOUNT. NPO. GETS SOB WHEN STANDS ON SIDE OF BED, SATS 91-93% RA, BILATERAL UPPER LUNGS CLEAR, DIM/CRACKLES TO THE BASES. CPAP IN PLACE, TOLERATING WELL. SAFETY MAINTAINED, CALL OCONNOR IN REACH.
--- NOTE | 2021-08-17 09:25 | NUR ---
DR. CANNON IN PT ROOM AT ABOUT 0830, DISCUSSED PLAN OF CARE WITH PT WHILE PT ON THE PHONE. THIS RN AT BEDSIDE.
--- NOTE | 2021-08-17 14:45 | NUR ---
Pt. is alert and in bed. Pt. welcomes my visit. Re-establish rapport. Pt. verbalizes an udate on his prognosis. Pt. displays evidence of agreement with the doctor's plan to avoid surgery if possible. Pt. verbalizes that he is at peace with the plan, and is encouraged by a possible Friday discharge. [place] with Pt. Pt. verbalized gratitude for the visit and spiritual care.
--- NOTE | 2021-08-17 15:44 | NUR ---
SUMMARY: PT IS TOLERATING CLEAR LIQ WITHOUT N/V OR ABD PAIN. PT REPORTS PASSING SOME GAS AND NO INCREASED ABD DISTENTION. PER DR. KEMP OK TO DC IV FLUIDS, PT TO RECEIVED PO ABX TONIGHT. PT IS A/O, VSS, NO SAFETY CONCERNS. PLAN IS FOR DC TOMORROW. REPORT PASSED TO SUJEY CORTES.
--- NOTE | 2021-08-17 17:58 | NUR ---
SHIFT SUMMARY PATIENT NONSURGICAL APPY. ALERT AND ORIENTED. TOLERATING CLEAR LIQUID DIET. DENIES ABD PAIN. REPORTS GAS. VOIDING WELL. SBA TO USE URINAL. HX OF LEFT AKA. [place]. PLEASANT AND COOPERATIVE.
--- NOTE | 2021-08-18 06:21 | NUR ---
SHIFT SUMMARY: SLEPT WELL THOUGH NIGHT. DENIED PAIN OR DISCOMFORT, STATED HE FELT ALOT BETTER. ABDOMEN SOFT, NO PAIN UPON PALPITAION. SAFETY MAINTAINED, CALL OCONNOR IN REACH.
[2021-08-18] MEDS ORDERED: AMOCLA875 PO (10:42)
[2021-08-18] MEDS ORDERED: VISBIOME 112.51 EACH PO (10:43)
--- NOTE | 2021-08-18 13:57 | NUR ---
1340: PT DISCHARGED. PT'S ARRIVED IN ROOM TO BRING SOME PAIR OF CLOTHES FOR DISCHARGE. PT AOX4. VSS. DENIES ANY PAIN AT THIS TIME. EXPERIENCED PRODUCTIVE COUGH. MUCINEX GIVEN THIS MORNING. BT PRESENT. TOLERATING PO INTAKE DENIES N/V. IV WAS DC'D. 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 PT ALSO DENIES CHEST PAIN, SOB AND DIZZINESS. DISCHARGE PACKET WAS REVIEW TO AND PATIENT. RECEPTIVE OF PLAN AND EXPRESSED UNDERSTANDING. PRESCRIPTIONS WERE SENT TO [facility], ALREADY PICKED UP MEDS FROM THE PHARMACY.
== END 2021-08-18 14:03 | disposition home or self-care (01) ==
LOC: ER 13:19 → SURS 13:20 → ERHOLD 13:20 → SURS 13:21 → ERHOLD 15:37 → SURS 15:37 → ER 15:37 → SURS 15:37 → ERHOLD 17:51 → SURS 08-18 14:03
PROVIDERS: Internal Medicine; Nurse Practitioner Acute Care; ADMIT Hospitalist
DX: K35.80 Unspecified acute appendicitis (principal); I73.9 Peripheral vascular disease, unspecified; G47.33 Obstructive sleep apnea (adult) (pediatric); E11.9 Type 2 diabetes mellitus without complications; I10 Essential (primary) hypertension; E78.5 Hyperlipidemia, unspecified; I25.10 Atherosclerotic heart disease of native coronary artery without angina pectoris; J44.9 Chronic obstructive pulmonary disease, unspecified; Z79.01 Long term (current) use of anticoagulants; Z88.8 Allergy status to other drugs, medicaments and biological substances; Z88.5 Allergy status to narcotic agent; Z91.011 Allergy to milk products; Z87.891 Personal history of nicotine dependence; Z66 Do not resuscitate; Z20.822 Contact with and (suspected) exposure to COVID-19
CPT/HCPCS: 0241U; 36415; 80048; 80053; 82947; 83735; 85025; 85610; 93005; 93010; 94640; 94660; 94664; 94762; 96374; 99285; A9270; J0360; J1650; J2405; J2543; J7030